=== PATIENT | female | born 1970 | race Caucasian/White ===

== ENCOUNTER 2025-11-17 14:37 | Outpatient (AMB) | payer OTHER, SELFPAY ==
--- OUTSIDE RECORDS SUMMARY | 2025-11-05 09:00 | XMS_ITS ---
Author Organization [facility] Address [address] [place] [id number] Care Team Providers Care Corrections Specialist Name Role Phone ANGELLA ROBERTS Primary Care Provider REASON FOR VISIT For water pill prescription Encounters Encounter Location Date Provider Diagnosis [address] [id number] 11/05/2025 ANGELLA ROBERTS Plan Of Treatment Next Appt Details Provider Name:Marco Sharif, Chapin 01/02/2026 11:30:00 AM, [address] [place] [address], [place], [id number], Progress Notes * Allyson DOUGLAS LDOB: [birth year] (55 yo F)Acc No.[id number]:11/05/2025 Progress Notes Patient: Allyson LAMBERT Provider: Ross ROBERTS MD :1970 A ge:55 Y S ex:Female Date:11/05/2025 Address:[address] [place], [place] [id number] Subjective: * Chief Complaints: * 1 . For water pill prescription. * Medical History: Objective: * Vitals: Assessment: Plan: * Treatment: * Procedure Codes: N OSHO NO SHOW FEE * Images: * Electronic signature of DONTE ROBERTS MD on 11/17/2025 at 04:58 PM EST Sign off status: Pending * Provider: Ross ROBERTS MD Date: 01/06/2025 Generated for Printi ng/Facatg/eTransmitting on: 04:58 PM EST
--- NOTE | 2025-11-17 14:42 | A.OFFPC_ITS ---
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: No Accompanied by: Friend Allergies diphenhydramine (From Benadryl) Allergy (Verified 12/22/25 11:01) Unknown pseudoephedrine (From Sudafed) Allergy (Verified 12/22/25 11:01) heart pounding Medication List - Last Reconciled 12/23/25 by MARIAH Thomas baclofen 20 mg PO QID clonidine HCl 0.2 mg PO QID PRN gabapentin 800 mg PO TID hydrochlorothiazide 12.5 mg PO DAILY ibuprofen 800 mg PO Q8H PRN lorazepam (Ativan) 0.5 mg PO BEDTIME PRN magnesium aspart,citrate,oxide mg PO mirtazapine 45 mg PO BEDTIME oxycodone ER (OxyContin) 10 mg PO ONCE venlafaxine ER 150 mg PO DAILY Tobacco use date assessed: 11/17/25 Dental Screening Dental Screen Date: 11/17/25 Did you have a dental visit in the last 12 months?: Yes Did you have a dental problem in the last 6 months where you did not have access to dental care?: No HPI HPI Comments History of Present Illness Details History of Present Illness The patient is a 55 year old female presenting to establish care and manage chronic pain, anxiety, and depression. She expresses dissatisfaction with her previous provider. The patient reports chronic pain primarily from a hip subluxation, which began after a fall approximately 3-3.5 years ago. An X-ray at that time confirmed a subluxation, and she was told the recovery for a hip replacement would be 6 months, which she declined due to fear. The pain, which started in the left hip, is now described as excruciating and has extended lower after a recent fall two Sund ago. Her current regimen of oxycontin 10 mg twice daily does not provide adequate relief. She is now willing to consider hip replacement surgery due to the unbearable pain. The patient has a history of diagnoses including systemic scleroderma and fibromyalgia. A recent ASA test was negative for systemic Lupus. She has also been diagnosed with fibromyalgia. She suffers from anxiety and depression and is currently taking Zoloft, which she feels is not effective. She had success with Paxil in the past. She is followed by a psychiatrist via telehealth and recently had adverse reactions, including delusional thoughts, to trials of Seroquel and Ambien. She reports experiencing sheer panic and using a life alert device, and recently passed out while on the phone with them. Additional symptoms include lower leg and foot swelling that worsens throughout the day, palpitations described as a pounding feeling, and ringing in one ear. She has a history of a prior echocardiogram for palpitations, but the details are unavailable. Her sleep is poor, averaging only four hours per night, and she has had previous trials of Seroquel and Ambien with poor outcomes. Regarding her social history, she reports a past history of drinking wine all day and into the night to cope with pain, but she quit in July. She was also prescribed clonazepam three times a day for 35 years. Medical History: - Hip subluxation, status post fall appr oximately 3.5 years ago. - Chronic pain syndrome. - Generalized anxiety disorder. - Depression. - Systemic scleroderma, diagnosed previo usly. - Fibromyalgia. - Palpitations. - Tinnitus. - Insomnia. - Lower extremity edema. - History of alcohol abuse, abstinent si july. - History of hospice care due to uncontr olled pain. - History of falls. - Adverse drug reaction to Seroquel and Ambien causing delusions. Surgical History: - No prior surgeries were discussed. Medications: - Oxycodone 10 mg twice daily for pain. - Zoloft (sertraline) once daily in the morning for depression. - Clonidine for blood pressure. - Ambien for sleep, to be discontinued. - Melatonin 10 mg for sleep, to be resum ed. Family History: - Father: history of substance abuse (al cohol). - Sister: has similar aches and pains. Health Maintenance - Lab work ordered to check cholesterol and blood sugar levels. Social History - Substance Use: The patient previously drank wine daily to manage pain but has been abstinent since July. - Functional Status: The patient uses a walker to ambulate. - Housing: Her bathroom is small, and [facility] is in the process of having it enlarged. - Social Support: The patient has a [employer]. Patient was informed and verbally consented to the use of an ambient scribe for clinic note documentation during this visit. FORMERLY [facility], [facility] Medical History (Updated 12/22/25 @ 13:13 by MARIAH Thomas) Anxiety Atypical nevi Bilateral hip pain Compression deformity of vertebra Health care maintenance Joint pain Low back pain MDD (major depressive disorder), recurrent episode Palpitations Family History Mother No problems noted. Father Substance abuse Sister Mental health disorder Substance abuse Paternal Uncle Mental health disorder Brother Substance abuse Social History Housing: House Patient Tobacco Use Status: Current everyday Tobacco user e-Cigarette/Vaping Use: Currently Using service: No Current occupational status: retired and disabled Current occupational exposures/hazards: No Cognitive needs: Yes (wheelchair) Hearing needs: No Vision needs: Yes (rx glasses) Questionnaire PHQ-9 Over the last 2 weeks, how often have you been bothered by any of the following problems? 1. Little interest or pleasure in doing things: not at all 2. Feeling down, depressed, or hopeless: several days (frustrated) 3. Trouble falling or staying asleep, or sleeping too much: nearly every day 4. Feeling tired or having little energy: nearly every day 5. Poor appetite or overeating: nearly every day 6. Feeling bad about yourself - or that you are a failure or have let yourself or your family down: not at all 7. Trouble concentrating on things, such as reading the newspaper or watching television: not at all 8. Moving or speaking so slowly that other people could have noticed. Or the opposite - being so fidgety or restless that you have been moving around a lot more than usual: not at all 9. Thoughts that you would be better off or of hurting yourself in some way: not at all Total score: 10 Depression Screening Interpretation: Positive Depression Screening Follow-up: In treatment Depression Screening Done: Yes Source: Developed by Drs. Federico Styles, Tracey Duval, Darrell Lopez and colleagues, with an educational bhavya from [employer]. Thrive Questionnaire Date Thrive assessed: 12/29/25 I am a: Patient Within the past 12 months, did the food you bought not last and you didn't have the money to get more?: Never true Do you have trouble paying for medicines?: No Do you have trouble getting transportation to medical appointments?: No Do you have trouble paying your heating and electricity bill?: No Do you have trouble taking care of your child, family member or friend?: No Do you have trouble with day-to-day activities such as bathing, preparing meals, shopping, managing finances, etc.?: No Are you currently unemployed and looking for a job?: No Are you interested in more education?: No THRIVE Score: 0 AUDIT C Alcohol Use Questionnaire (AUDIT-C) 1. How often do you have a drink containing alcohol?: Monthly or less 2. How many drinks containing alcohol do you have on a typical day when you are drinking?: 1 or 2 3. How often do you have six or more drinks on one occasion?: Less than monthly Total Score: 2 LITA-7 AMB Questionnaire LITA-7 Date LITA - 7 assessed: 11/17/25 Feeling nervous, anxious, or on edge: 3 = Nearly every day Not being able to stop or control worryin = Nearly every day Worrying too much about different things: 3 = Nearly every day Trouble relaxin = Nearly every day Being so restless that it is hard to sit still: 3 = Nearly every day Becoming easily annoyed or irritable: 3 = Nearly every day Feeling afraid as if something awful might happen: 3 = Nearly every day Total LITA-7 score (0-4 normal; 5-9 mild; 10-14 moderate; 15-21 severe): 21 Source: Developed by Drs. Federico Stylse, Tracey Duval, Darrell Lopez and colleagues, with an educational bhavya from [employer]. Review of Systems Narrative Review of Systems - Psychiatric: Reports anxiety, depression, and panic attacks. - Musculoskeletal: Reports excruciating chronic hip pain that radiates down her leg, as well as generalized body aches. - Cardiovascular: Reports palpitations described as her heart pounding loudly and bilateral lower extremity edema. - Ears, Nose, Throat: Reports ringing in one ear. - Neurological: Reports dizziness upon standing. - Constitutional: Reports poor sleep, averaging only 4 hours per night. Physical exam (Primary Care) Vital Signs: Last Vital Signs Temp 97.8 F 11/17/25 14:45 Pulse 83 11/17/25 14:45 BP 128/72 11/17/25 14:45 Pulse Ox 97 11/17/25 14:45 Oxygen Delivery Method Room Air 11/17/25 14:45 BMI result Body Mass Index 19.5 GENERAL Well developed, Well nourished, in no apparent distress HEENT Head-Normocephalic Eyes- PERRLA, EOMI, Conjuctiva clear, lids WNL Ears- Canals clear, TMs WNL Mouth/Throat-No lesions, no erythema, no exudate Neck- Supple, No lymphadenopathy, thyroid WNL RESPIRATORY Normal I:E, Clear to auscultation CARDIOVASCULAR Regular, rate and rhythm, No murmurs or rubs GASTROINTESTINAL Soft, nontender, normal bowel sounds, no masses MUSCULOSKELETAL Back-Decreased ROM, Tender in Lumbar, Tender with motion, DTR 2+ symmetrical, Gait- in wheel chair 1+ peripheral edema bilaterally, pulses present NEUROLOGICAL Gait in wheel chair PSYCHIATRIC Oriented to person, place and time Mood and affect- depressed and anxious Appearance WNL Speech WNL Thought processes WNL Tobacco/Smoking Status: Tobacco use Status Tobacco use date assessed 11/17/25 11/17/25 15:05 Patient Tobacco Use Status Current everyday Tobacco 11/17/25 15:05 e-Cigarette/Vaping Use Currently Using 11/17/25 15:05 PHQ-9: PHQ-9 Score PHQ-9: Total score 10 11/17/25 16:38 Depression Screening Interpretation: Positive Depression Screening Follow-up: In treatment Thrive Assessment: Date of Thrive Assessment Date Thrive assessed 11/17/25 11/17/25 15:05 Narrative Physical Exam - Lungs: Clear to auscultation bilaterally. - Cardiovascular: Regular rate and rhythm noted on auscultation. Coding Level of Care Code New Pt New Pt Level 4 (75521) Patient Type New Diagnoses Low back pain M54.50 Bilateral hip pain M25.551; M25.552 MDD (major depressive disorder), recurrent episode F33.9 Anxiety F41.9 Palpitations R00.2 Fibromyalgia M79.7 Health care maintenance Z00.00 Edema R60.9 Time Spent (min) 35 Comment Time was spent on Medication reconciliation, H&P, Patient education and orders. Assessment & Plan Assessment & Plan (1) Low back pain: Code(s): M54.50 - Low back pain, unspecified Category: Medical Plan: Will get xray of lower back. Will consider referral to Ortho. Patient to follow up in 4 weeks or sooner if symptoms persist or worsen. (2) Bilateral hip pain: Code(s): M25.551 - Pain in right hip; M25.552 - Pain in left hip Category: Medical Plan: Will get xray. Will consider referral to Ortho. Patient to follow up in 4 weeks or sooner if symptoms persist or worsen. (3) MDD (major depressive disorder), recurrent episode: Code(s): F33.9 - Major depressive disorder, recurrent, unspecified Category: Medical Plan: Will try changing to Duloxetine 30mg daily. Patient to follow up in 4 weeks or sooner if symptoms persist or worsen. (4) Anxiety: Code(s): F41.9 - Anxiety disorder, unspecified Category: Medical Plan: Will try changing to Duloxetine 30mg daily. Patient to follow up in 4 weeks or sooner if symptoms persist or worsen. (5) Palpitations: Code(s): R00.2 - Palpitations Category: Medical Plan: Will request Holter monitor. Patient to follow up in 4 weeks or sooner if symptoms persist or worsen. (6) Fibromyalgia: Code(s): M79.7 - Fibromyalgia Plan: Will try changing to Duloxetine 30mg daily. Patient to follow up in 4 weeks or sooner if symptoms persist or worsen. (7) Health care maintenance: Code(s): Z00.00 - Encounter for general adult medical examination without abnormal findings Category: Medical Plan: Will get labs. (8) Edema: Code(s): R60.9 - Edema, unspecified Plan: Will give HCTZ. Patient to follow up in 4 weeks or sooner if symptoms persist or worsen. Plan Plan Patient was informed and verbally consented to the use of an ambient scribe for clinic note documentation during this visit. 1. Chronic Hip Pain And Subluxation The patient's primary complaint is excruciating chronic pain from a left hip subluxation, which originated from a fall 3.5 years ago and was significantly worsened by another fall two weeks ago. The pain is not controlled with oxycodone 10 mg BID. Updated x-rays of the back and hips will be obtained today to evaluate the current condition. Based on the results, referrals will be made to the appropriate specialist, such as orthopedics or pain management, to address the pain and discuss further interventions, including a potential hip replacement, which the patient is now willing to consider. 2. Fibromyalgia, Anxiety, And Depression The patient reports diagnoses of fibromyalgia, anxiety, and depression. Her current SSRI, sertraline (Zoloft), is not providing adequate symptom relief. The plan is to switch her medication from sertraline to duloxetine (Cymbalta), an SNRI that can also help with chronic pain associated with fibromyalgia. She will be started on a low dose, taken twice daily, and can switch directly from sertraline without a weaning period. A follow-up appointment is scheduled in 4-6 weeks to assess her response to the new medication and make any necessary dosage adjustments. 3. Lower Extremity Edema The patient reports significant swelling in her lower legs and feet, which worsens throughout the day and contributes to her overall pain and discomfort. A prescription for hydrochlorothiazide will be sent to help manage the edema. The patient was instructed to take the medication in the morning. 4. Palpitations The patient complains of palpitations, describing a sensation of her heart pounding loudly, which can wake her from sleep. While her heart rhythm was regular during the office examination, a further workup is warranted. A 2-day Holter monitor will be ordered to continuously monitor her heart rhythm and correlate her symptoms with EKG findings to determine if an arrhythmia is present. 5. Insomnia The patient suffers from poor sleep, averaging only four hours per night, and has had adverse reactions to Ambien and Seroquel. She will discontinue Ambien and was advised to resume taking her 10 mg melatonin supplement for sleep support. It is hoped that improved pain and mood control with duloxetine will also lead to better sleep quality. Discussion Notes I had a detailed discussion with the patient about the plan of care. I explained that we would start by gathering more information through updated x-rays of her back and hips, as well as comprehensive blood work, including inflammatory markers and a general health panel, which she can have done today at the hospital. We discussed switching her antidepressant from sertraline to duloxetine, explaining that duloxetine is often more effective for conditions involving chronic pain, such as fibromyalgia, and that she could make the switch directly without weaning off her current medication. I also addressed her complaint of lower leg swelling by prescribing hydrochlorothiazide, and she confirmed she has taken it before. To investigate her palpitations, I recommended a 2-day Holter monitor to capture her heart's electrical activity over an extended period. I informed her that based on the results of these initial tests, we would decide on the most appropriate specialty referrals???such as orthopedics, pain management, or rheumatology???to best manage her chronic pain. We agreed she should stop taking Ambien and could resume melatonin 10mg for sleep. Finally, I advised her to schedule a follow-up appointment in 4 to 6 weeks to review the results, assess her response to the medication change, and adjust the plan as needed. Patient Instructions - Please go to the hospital today to get your blood work and X-rays done. - We are switching your medication for depression and pain from Zoloft (sertraline) to Cymbalta (duloxetine). - You can stop taking the sertraline and start taking the duloxetine tomorrow morning. - Take the new medication, duloxetine, twice a day (morning and evening). - A prescription for a water pill (hydrochlorothiazide) has been sent to your pharmacy. Take one pill in the morning to help with the swelling in your legs. - Stop taking Ambien for sleep. - You can go back to taking melatonin 10 mg for sleep. - The cardiology department will contact you to schedule an appointment to get a Holter monitor, which you will wear for two days to check your heart rhythm. - Please schedule a follow-up appointment with me in 4 to 6 weeks to see how you are doing on the new medication. Orders: Orders Comprehensive Met. Panel 11/17/25 F33.9 - Major depressive disorder, recurrent, unspecified, F41.9 - Anxiety disorder, unspecified, Z00.00 - Encounter for general adult medical examination without abnormal findings Vitamin D 25-OH Total 11/17/25 Z00.00 - Encounter for general adult medical examination without abnormal findings TSH reflex Free T4 11/17/25 F33.9 - Major depressive disorder, recurrent, unspecified, F41.9 - Anxiety disorder, unspecified, Z00.00 - Encounter for general adult medical examination without abnormal findings XR hips RODDY min 3V 12/29/25 M25.551 - Pain in right hip, M25.552 - Pain in left hip ECG holter monitor 48 hour 11/17/25 R00.2 - Palpitations Complete Blood Count no Diff 11/17/25 Z00.00 - Encounter for general adult medical examination without abnormal findings, F33.9 - Major depressive disorder, recurrent, unspecified, F41.9 - Anxiety disorder, unspecified Lipid Panel 11/17/25 Z00.00 - Encounter for general adult medical examination without abnormal findings, Z13.220 - Encounter for screening for lipoid disorders XR lumbar spine 2-3V 11/17/25 M54.50 - Low back pain, unspecified CRP High Sensitivity 11/17/25 M25.50 - Pain in unspecified joint Erythrocyte Sedimentation Rate 11/17/25 M25.50 - Pain in unspecified joint Medications: New 2 hydrochlorothiazide 12.5 mg PO DAILY 90 tabs 0RF for swelling duloxetine 30 mg PO BID 180 caps 0RF for fibromyalgia
[2025-11-17 14:45] VITALS: BP 128/72; PULSE 83; TEMP 36.6; O2SAT 97; BMI 19.5
--- OUTSIDE RECORDS SUMMARY | 2025-11-17 16:59 | XMS_ITS | Patient Health Record ---
Author Organization [facility] liance Address [address] [place] [address] Care Team Providers Care Stretch Machine Operator Name Role Phone [place] Primary Care Provider UnavailRupert Dias Unavailable [phone] Tolu Sandoval Unavailable [phone] Jyoti Ferro Unavailable [phone] Clinical, Operations Unavailable Unavailable Chiara Forman Unavailable [phone] Mounika Krishnamurthy Unavailable [phone] Analia Fuller Unavailable [phone] Eran Ceballos Unavailable [phone] Allergies No Known Allergies Reason For Referral Reason REPAIR REQUEST Mem ramírez reported that her lift recliner is not working. Diagnosis 1 History of falling ( Z91.81) Referring Provider First Name Operations Referring Provider Last Name Clinical Referring Provider Speciality Unknown Referred Provider [employer] General Notes If unable to process this request or you require more information, please contact Nick at [email or web address] or by [phone] Referral Priority Routine Reason ICO TOOL MACHINE SET UP OPERATOR Referral req uest for adjustment for increase Diagnosis 1 Other malaise (R53.8 1) Referring Provider First Name Operations Referring Provider Last Name Clinical Referring Provider Speciality Unknown [facility] Referred Provider Specialty Personal Car e Management Clinical Notes Is member ICO (OneRiddhi re)? ICO, Resident Services Manager email address: [email or web address], Is this request for an Initial, Increase, or Decrease? Increase, Dates increase and decrease needed for ? Member called stating she has been put on morphine 4x a day but is unable to give herself a 2:30 am dose by herself., If this is an urgent need for increase in hours please provide rationale: , Who is requesting TOOL MACHINE SET UP OPERATOR services or changes of TOOL MACHINE SET UP OPERATOR services and their relationship to, the member? The member, Diagnosis with ICD10 code that supports need for TOOL MACHINE SET UP OPERATOR: R53.81 Other Malaise, Which of the at least 2 ADL hands on needs does this member need assistance with: mobility and toileting, Additional hands-on needs: , What are the member's informal supports? No, Will member likely need a surrogate to manage a TOOL MACHINE SET UP OPERATOR? No, If yes, provide surrogate contact if available:, Primary contact for Member: [phone], Members preferred language: Martiniquais, Does member have existing LTSS? Please list: , Will TOOL MACHINE SET UP OPERATOR be replacing the LTSS? Please list: No, Provide name and contact info for [facility]: Malgorzata Bradleyiago ([phone] ext. [phone]), Please identify PCM agency and FI member will be using:, PCM: ([facility]) [facility] [employer] FI: Matias Mejía Frances 01/16/2025 04:04:38 PM > Referral Priority Routine Reason ICO TOOL MACHINE SET UP OPERATOR Referral req uest for adjustment for increase Diagnosis 1 Other malaise (R53.8 1) Referring Provider First Name Operations Referring Provider Last Name Clinical Referring Provider Speciality Unknown Referred Provider [facility] [employer] Referred Provider Specialty Personal Car e Management Clinical Notes Is member ICO (OneCa re)? ICO, Resident Services Manager email address: [email or web address], Is this request for an Initial, Increase, or Decrease? Increase, Dates increase and decrease needed for? KARLOS, If this is an urgent need for increase in hours please provide rationale: Member's declining health, [facility], Who is requesting TOOL MACHINE SET UP OPERATOR services or changes of TOOL MACHINE SET UP OPERATOR services and their relationship to, the member? Member, Diagnosis with ICD10 code that supports need for TOOL MACHINE SET UP OPERATOR: R53.81, Other malaise, Which of the at least 2 ADL hands on needs does this member need assistance with: Bathing and Toileting, Additional hands-on needs: Mobility, dressing, eating, What are the member's informal supports? [place] , Will member likely need a surrogate to manage a TOOL MACHINE SET UP OPERATOR? No, If yes, provide surrogate contact if available: , Primary contact for Member: Self, Members preferred language: Martiniquais, Does member have existing LTSS? Please list: TOOL MACHINE SET UP OPERATOR, Will TOOL MACHINE SET UP OPERATOR be replacing the LTSS? Please list: No, Provide name and contact info for [facility]/LT[facility]: Shivani Castle ([phone]), Please identify PCM agency and FI member will be using: PCM: [facility], FI: Matias Mejía Frances 01/29/2025 08:35:20 AM > Referral Priority Routine Medications Medication SIG (Take, Route, Frequency, Duration) Notes Start Date End Date Status Morphine Sulfate ER 15 MG 1 tablet Orally three times a day As needed for pain Not-Taking Loperamide HCl 2 MG 1 capsule as needed Orally Four times a day OTC-PRN Active Diclofenac Sodium 75 MG 1 tablet as need ed Orally Twice a day Not-Taking Cholecalciferol 125 MCG (5000 UT) 1 capsule Orally Once a day Active Acamprosate Calcium 333 MG 1 tablet Orally 3 times a day Active Mirtazapine 7.5 MG 1 tablet at bedtime Orally Once a day Active Saccharomyces boulardii 250 MG 1 capsule Orally twice a day Not-Taking cloNIDine HCl 0.2 MG 1 tablet Orally 3 times a day Active Albuterol Sulfate HFA 108 (90 Base) MCG/ACT 1 puff as needed Inhalation every 4 hrs As needed Active Baclofen 20 MG 1 tablet with food or milk as needed Orally Three times a day Active Melatonin 10 MG 2 tablets Orally daily at bedtime Active Ketoconazole 2 % 1 application Externally Once a day As needed Active Gabapentin 800 MG 1 tablet Orally three times a day Active Hydrocortisone 2.5 % 1 application Externally Twice a day As needed Active Magnesium 250 MG 500 mg Orally Once a day Active Pepto Bismol 262 MG 1 capsule as needed Orally as needed As needed OTC Active oxyCODONE HCl ER 10 MG 1 tablet Orally every 12 hrs Active clonazePAM 1 MG 1 tablet Orally twice a day Active Sertraline HCl 50 MG 1 tablet Orally Once a day Daily dose 150mg, take with 100mg Not-Taking Sertraline HCl 200 MG 1 tablet Orally Once a day Active Social History Alcohol Screen Question Answer Notes Did you have a drink contain ing alcohol in the past year? Yes How often did you have a dri nk containing alcohol in the past year? Monthly or less (1 point) How many drinks did you have on a typical day when you were drinking in the past year? 1 or 2 drinks (0 point) How often did you have 6 or more drinks on one occasion in the past year? Never (0 point) Points 1 Interpretation Negative Section Notes: Reports she smokes 1ppd sinc e she was a teenager >40 years. Used to drink alcohol, now very rarely. Denies any drug use. Member smokes 0.5 packs a da y for about 40 years. She drinks 3-4 drinks a week Problems Problem Type SNOMED Code ICD Code Onset Dates Problem Status W/U Status Risk Notes Problem Incontinence (16415419) Incontinence (R32) Inactive confirmed Problem Essential hypertension (71346511) Essential hypertension (I10) Active confirmed Problem Posttraumatic stress disorder (89451965) PTSD (post-traumatic stress disorder) (F43.10) Inactive confirmed Problem History of fall (384110897) History of falling (Z91.81) Inactive confirmed Problem Neuropathy (476447353) Neuropathy (G62.9) Inactive confirmed Problem Adult health examination (738508911) Encounter for general adult medical examination without abnormal findings (Z00.00) Inactive confirmed Problem Seen by palliative care physician (878310572) Encounter for palliative care (Z51.5) Active confirmed Problem Anorexia (91393381) Anorexia (R63.0) Inactive confirmed Problem Irritable bowel syndrome with diarrhea (875043719) Irritable bowel syndrome with diarrhea (K58.0) Active confirmed Problem Vitamin D deficiency (56028983) Vitamin D deficiency (E55.9) Active confirmed Problem Chronic pain syndrome (553798563) Chronic pain syndrome (G89.4) Inactive confirmed Problem Unsteady gait (02251788) Unsteady gait (R26.81) Inactive confirmed Problem Muscle weakness (93893194) Muscle weakness (generalized) (M62.81) Active confirmed Problem Generalized anxiety disorder (04313962) LITA (generalized anxiety disorder) (F41.1) Active confirmed Problem Benign hypertension (13635389) Benign hypertension (I10) Inactive confirmed Problem Insomnia disorder related to another mental disorder (87990596) Insomnia due to other mental disorder (F51.05) Active confirmed Problem Hearing loss (45832716) Unspecified hearing loss (H91.90) Active confirmed Problem Moderate recurrent major depression (98759603) MDD (major depressive disorder), recurrent episode, moderate (F33.1) Inactive confirmed Problem Functional urinary incontinence (230744908) Functional incontinence (R39.81) Active confirmed Problem Fibromyalgia (628373207) Fibromyalgia (M79.7) Active confirmed Problem History of skin disorder (270479184) History of pressure ulcer (Z87.2) Active confirmed Problem Tobacco user (378303268) Cigarette nicotine dependence without complication (F17.210) Active confirmed Problem Adult failure to thrive syndrome (269815278) FTT (failure to thrive) in adult (R62.7) Active confirmed Problem Malnutrition of mild degree (Aguilar: 75% to less than 90% of standard weight) (15042558) Mild protein-calorie malnutrition (E44.1) Inactive confirmed Problem 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 Problem Acquired unequal limb length (935082622876702 ) Unequal limb length (acquired), unspecified site (M21.70) Active confirmed Problem Urinary incontinence (458600138) Other specified urinary incontinence (N39.498) Inactive confirmed Problem Chronic pain (99256787) Other chronic pain (G89.29) Active confirmed Problem Posttraumatic stress disorder (35621781) Post-traumatic stress disorder, chronic (F43.12) Active confirmed Recommended by CDI Problem Inflammatory and toxic neuropathy (185353421) Peripheral polyneuropathy (G62.9) Active confirmed Problem Mild recurrent major depression (26544325) MDD (major depressive disorder), recurrent episode, mild (F33.0) Active confirmed Problem Anxiety state (687112114) Anxiety disorder, unspecified type (F41.9) Inactive confirmed Problem Moderate recurrent major depression (46218214) Moderate episode of recurrent major depressive disorder (F33.1) Inactive confirmed Problem High risk drug monitoring status (964000560) long-term prescription opiate use (Z79.891) Active confirmed Problem Urinary incontinence (715402831) Urinary incontinence, unspecified type (R32) Inactive confirmed Problem BMI less than 20 (317266347) Body mass index (BMI) less than 16.5 (Z68.1) Inactive confirmed Problem Insomnia (765829381) Insomnia, unspecified type (G47.00) Inactive confirmed Problem Redness of skin (L53.9) Active confirmed Problem Localized, secondary osteoarthritis of the shoulder region (719424969) 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) Inactive confirmed Problem BMI less than 20 (872078743) Body mass index [BMI] 19.9 or less, adult (Z68.1) Active confirmed Problem Current drinker of alcohol (finding) (401801) Alcohol use, unspecified, uncomplicated (F10.90) Active confirmed Vital Signs Heart Rate 88 /min 12/13/2024 Respiratory Rate 18 /min 12/13/2024 Blood pressure diastolic 85 mm Hg 12/13/2024 Oximetry 91 % 12/13/2024 Height-cm 160.02 cm 12/13/2024 Weight-kg 46.27 kg 12/13/2024 Height 63 in 12/13/2024 Blood pressure systolic 124 mm Hg 12/13/2024 Weight 102 lbs 12/13/2024 BMI 18.07 kg/m2 12/13/2024 Encounters Encounter Location Date Provider Diagnosis [address] [address] 12/13/2024 Mounika Krishnamurthy Encounter for palliative care Z51.5 and Progressive systemic sclerosis M34.[address] [address] 12/18/2024 Mounika Krishnamurthy Encounter for palliative care Z51.5 and Progressive systemic sclerosis M34.[address] [address] 12/26/2024 Mounika Krishnamurthy Encounter for palliative care Z51.5 and Progressive systemic sclerosis M34.[address] [address] 12/26/2024 Analia Fuller Encounter for palliative care Z51.[address] [address] 12/30/2024 Mounika Krishnamurthy [address] [address] 01/01/2025 Mounika Krishnamurthy [address] [address] 01/28/2025 Analia Beauchemin Encounter for palliative care Z51.5 [facility] [address] [facility] [address] [place] [address] 04/30/2025 Jyoti Ferro Other chronic pain G89.29 ; Encounter for palliative care Z51.5 ; Alcohol use, unspecified, uncomplicated F10.90 and Body mass index [BMI] 19.9 or less, adult Z68.1 [facility] [address] [place] [address] 05/30/2025 Chiara Forman Fibromyalgia M79.7 ; Unequal limb length (acquired), unspecified site M21.70 ; Peripheral polyneuropathy G62.9 and Other reduced mobility Z74.09 [facility] [address] [place] [address] 09/25/2025 Operations Clinical History of pressure ulcer Z87.2 ; long-term prescription opiate use Z79.891 ; FTT (failure to thrive) in adult R62.7 ; Functional incontinence R39.81 ; Fibromyalgia M79.7 ; Muscle weakness (generalized) M62.81 ; Unequal limb length (acquired), unspecified site M21.70 ; Redness of skin L53.9 ; Irritable bowel syndrome with diarrhea K58.0 ; Essential hypertension I10 ; Unspecified hearing loss H91.90 ; Other chronic pain G89.29 ; Peripheral polyneuropathy G62.9 ; Insomnia due to other mental disorder F51.05 ; LITA (generalized anxiety disorder) F41.1 ; MDD (major depressive disorder), recurrent episode, mild F33.0 ; Cigarette nicotine dependence without complication F17.210 ; Amnestic disorder due to known physiological condition F04 ; Vitamin D deficiency E55.9 ; Post-traumatic stress disorder, chronic F43.12 ; Encounter for palliative care Z51.5 ; Body mass index [BMI] 19.9 or less, adult Z68.1 and Alcohol use, unspecified, uncomplicated F10.[address] [place] [address] 04/29/2025 Eran Ceballos [facility] [address] [facility] [address] [place] [address] 04/10/2025 Operations [facility] [address] [place] [address] 04/11/2025 Operations [facility] [address] [place] [address] 04/11/2025 Operations [facility] [address] [place] [address] 04/15/[address] [facility] [address] [facility] [address] [place] [address] 04/24/2025 Operations [facility] [address] [place] [address] 04/28/2025 [facility] [place]Note 2[place] [address] [facility] [address] [place] [address] 05/01/2025 [facility] [address] [facility] [address] [place] [address] 05/02/2025 [facility] (Closed) [address] [place] [address] 07/29/2025 [facility] [address] [place] [address] 08/25/2025 Tolu Sandoval Assessments Encounter Date Diagnosis (ICD Code) Assessment Notes Treatment Notes Treatment Clinical Notes Section Notes 12/13/2024 Encounter for palliative care (ICD-10 - Z51.5) 54yo female admitted to the palliative care program on 10/30/24 with a dx of progressive Systemic sclerosis, chronic pain -Consent to PC -Advanced Directives Currently: DNR/DNI , Do not transfer -HCP on file in [facility]- will update once witness available -current JAKOB emailed to HIM to be added to patients [facility] documents -Collaboration with PCP- re: pain medication recommendations vs. hospice Education provided on: palliative care program, disease process, various pain medication options, energy conservation Follow up needs: hospice informational- [facility] -Palliative Care contact information reviewed and provided. -InstED services/contact information reviewed and provided. -Resident Services Manager updated on palliative visit and plan 12/18/2024 Encounter for palliative care (ICD-10 - Z51.5) 54yo female admitted to the palliative care program on 10/30/24 with a dx of progressive Systemic sclerosis, chronic pain -Advanced Directives Currently: DNR/DNI , Do not transfer -Collaboration with PCP- re: pain medication recommendations vs. hospice Education provided on: palliative care program, disease process, various pain medication options, energy conservation Follow up needs: hospice informational- patient chose [facility] hosp[facility] -Palliative Care contact information reviewed and provided. -InstED services/contact information reviewed and provided. -Resident Services Manager updated on palliative visit and plan 12/26/2024 Encounter for palliative care (ICD-10 - Z51.5) 54yo female admitted to the palliative care program on 10/30/24 with a dx of progressive Systemic sclerosis, chronic pain -Advanced Directives Currently: DNR/DNI , Do not transfer -Collaboration with PCP- re: pain medication recommendations vs. hospice Education provided on: palliative care program vs. hospice program, disease process, various pain medication options, energy conservation Follow up needs: [facility] hosp[facility] -Palliative Care contact information reviewed and provided. -InstED services/contact information reviewed and provided. -Resident Services Manager updated on palliative visit and plan 12/26/2024 Encounter for palliative care (ICD-10 - Z51.5) 54yo female admitted to the palliative care program on 10/30/24 with a dx of progressive Systemic sclerosis, chronic pain *Todays visit: Joint visit made with Mounika Krishnamurthy palliative APC for HCP completion and review for Hospice appropriateness, Hospice informational * See HPI *Note faxed to [facility] for comparative review, under consideration for admission to Hospice 01/28/2025 Encounter for palliative care (ICD-10 - Z51.5) 54yo female admitted to the palliative care program on 10/30/24 with a dx of progressive Systemic sclerosis, chronic pain *Todays visit:Pt telehealth and Hospice case conference Pt alert and able to engage in visit. States she is satisfied with [facility] care and in agreement with palliative discharge 04/30/2025 Other chronic pain (ICD-10 - G89.29) 05/30/2025 Fibromyalgia (ICD-10 - M79.7) SUMMARY: Member presents with chronic pain in multiple sites and impaired mobility. She reports she lived at a snf x a couple of years and moved into her current home approx 2 years ago. She is non-ambulato ry and relies on her mwc and pwc for all mobility. She has 13 TOOL MACHINE SET UP OPERATOR hours/day, with assist to get OOB in the morning and back to bed at night. digital asset specialist assist member transfer between her bed and her manual wc and power wc with max assist for SPTs. Member has requested a power lift recliner, although she does own 2 currently. One of them is quite small and would not be an appropriate for her to transfer on/off of. The other one which she recently purchased online works fine, but member states she does not use it as it is uncomfortabl e. PT observed TOOL MACHINE SET UP OPERATOR transfer member btwn her mwc and pwc with safe technique. PT did recommend that they use the gait belt. Member states she stays up in her mwc or pwc all day, and does not routinely lay down on the bed during the day. PT does not feel she meets the ZDB176 guidelines for a power lift recliner, as it does not appear that the lift feature would make member's transfers any easier, or safer. In fact, as this PT was sitting in her new PLR, as it was elevating me into a standing position, it felt like I was sliding forward on the seat, possibly due to the faux leather material. As member cannot WB on her LLE and minimally (TTWB) on her RLE, the elevation feature could put her at higher risk of falling. She would still require max assist from TOOL MACHINE SET UP OPERATOR for all SPTs to her w/c. She does still have the option of using her new recliner as a static seat surface. Her TOOL MACHINE SET UP OPERATOR is able to safely transfer her from standard height surfaces, btwn her mwc and pwc. PT will recommend denial as it does not appear a power lift recliner will aide in her transfers, safety or increase her independence . Member was educ in the appeal process if a PLR is denied. 05/30/2025 Unequal limb length (acquired), unspecified site (ICD-10 - M21.70) SUMMARY: presents with chronic pain in multiple sites and impaired mobility. She reports she lived at a snf x a couple of years and moved into her current home approx 2 years ago. She is non-ambulato ry and relies on her mwc and pwc for all mobility. She has 13 TOOL MACHINE SET UP OPERATOR hours/day, with assist to get OOB in the morning and back to bed at night. digital asset specialist assist member transfer between her bed and her manual wc and power wc with max assist for SPTs. Member has requested a power lift recliner, although she does own 2 currently. One of them is quite small and would not be an appropriate for her to transfer on/off of. The other one which she recently purchased online works fine, but member states she does not use it as it is uncomfortabl e. PT observed TOOL MACHINE SET UP OPERATOR transfer member btwn her mwc and pwc with safe technique. PT did recommend that they use the gait belt. Member states she stays up in her mwc or pwc all day, and does not routinely lay down on the bed during the day. PT does not feel she meets the ZMV640 guidelines for a power lift recliner, as it does not appear that the lift feature would make member's transfers any easier, or safer. In fact, as this PT was sitting in her new PLR, as it was elevating me into a standing position, it felt like I was sliding forward on the seat, possibly due to the faux leather material. As cannot WB on her LLE and minimally (TTWB) on her RLE, the elevation feature could put her at higher risk of falling. She would still require max assist from TOOL MACHINE SET UP OPERATOR for all SPTs to her w/c. She does still have the option of using her new recliner as a static seat surface. Her TOOL MACHINE SET UP OPERATOR is able to safely transfer her from standard height surfaces, btwn her mwc and pwc. PT will recommend denial as it does not appear a power lift recliner will aide in her transfers, safety or increase her independence . was educ in the appeal process if a PLR is denied. 09/25/2025 History of pressure ulcer (ICD-10 - Z87.2) 05/30/2025 Peripheral polyneuropathy (ICD-10 - G62.9) SUMMARY: presents with chronic pain in multiple sites and impaired mobility. She reports she lived at a snf x a couple of years and moved into her current home approx 2 years ago. She is non-ambulato ry and relies on her mwc and pwc for all mobility. She has 13 TOOL MACHINE SET UP OPERATOR hours/day, with assist to get OOB in the morning and back to bed at night. digital asset specialist assist member transfer between her bed and her manual wc and power wc with max assist for SPTs. Member has requested a power lift recliner, although she does own 2 currently. One of them is quite small and would not be an appropriate for her to transfer on/off of. The other one which she recently purchased online works fine, but member states she does not use it as it is uncomfortabl e. PT observed TOOL MACHINE SET UP OPERATOR transfer member btwn her mwc and pwc with safe technique. PT did recommend that they use the gait belt. Member states she stays up in her mwc or pwc all day, and does not routinely lay down on the bed during the day. PT does not feel she meets the KWG390 guidelines for a power lift recliner, as it does not appear that the lift feature would make member's transfers any easier, or safer. In fact, as this PT was sitting in her new PLR, as it was elevating me into a standing position, it felt like I was sliding forward on the seat, possibly due to the faux leather material. As cannot WB on her LLE and minimally (TTWB) on her RLE, the elevation feature could put her at higher risk of falling. She would still require max assist from TOOL MACHINE SET UP OPERATOR for all SPTs to her w/c. She does still have the option of using her new recliner as a static seat surface. Her TOOL MACHINE SET UP OPERATOR is able to safely transfer her from standard height surfaces, btwn her mwc and pwc. PT will recommend denial as it does not appear a power lift recliner will aide in her transfers, safety or increase her independence . Member was educ in the appeal process if a PLR is denied. 04/30/2025 Encounter for palliative care (ICD-10 - Z51.5) g89.29 f10.90 z68.1 54 yo female with long history of chronic pain, alcohol use, and a self reported history of scleroderm. She has a history of dysfunctional interaction with the health care system. It appears according to chart review and according to patient report she is often referred for testing and to specialists etc and follow up does not occur. Her current goal is for improvement in her chronic pain. She is currently being titrated down on opiats by her PCP after being discharged from hospice. She was recently referred to physical therapy by her PCP. She was encouraged to maintain this appointment, to engage with PT and to participate fully and consistently with their reccomendations. We discussed the role of immobility in her pain experience, and she agrees to do. We discussed the lack of specialty care with rheumatology and the ambiguity I see surrounding the diagnosis scleroderma/syst emic sclerosis and whether or not the possibility of this diagnosis impacts her risk of mortality. I expressed my worries with her that without specialty level care it will continue to be difficult getting the type of care or relief that she desires. I encouraged her to assure she has follow up with Dr. Hale after her most recent appointment. She agrees to do so as she wishes to see the lab results her ordered. I explained that our palliative care service does not prescribe, and anything that we reccomended or another specialist recommended her primary provider would need to be in agreement with. She seemed to understand this. I also discussed that managing chronic pain unrelated to a terminal illness is not our area of expertise. We explored the differences of acute pain and/or pain related to a terminal illness, vs the nature of chronic pain and the need to treat these two things very differently for the best and safest outcomes. I suggested that her engaging with a chronic pain specialist and/or pain clinic would be my reccomendation at this time. I explained that I was willing to explore options in her area and call her with some contacts in a few days which she agreed. Although her weight is low, it is largely stable and likely multifactorial. She would likely benefit from nutritional consult and/or referral to principal technical specialist to determine how much her alcohol use is imacting her nutritional status. Her alcohol use and readiness for sobriety should be assessed by primary team for best next steps. 12/26/2024 Progressive systemic sclerosis (ICD-10 - M34.0) -Monitor for increased pain, numbness -F/U with PCP as scheduled -Continue current pain medications as prescribed 12/18/2024 Progressive systemic sclerosis (ICD-10 - M34.0) -Monitor for increased pain, numbness -F/U with PCP as scheduled -Continue current pain medications as prescribed 12/13/2024 Progressive systemic sclerosis (ICD-10 - M34.0) -Monitor for increased pain, numbness -F/U with PCP as scheduled -Continue current pain medications as prescribed 09/25/2025 secured entrance monitor prescription opiate use (ICD-10 - Z79.891) 05/30/2025 Other reduced mobility (ICD-10 - Z74.09) SUMMARY: Member presents with chronic pain in multiple sites and impaired mobility. She reports she lived at a snf x a couple of years and moved into her current home approx 2 years ago. She is non-ambulato ry and relies on her mwc and pwc for all mobility. She has 13 TOOL MACHINE SET UP OPERATOR hours/day, with assist to get OOB in the morning and back to bed at night. digital asset specialist assist member transfer between her bed and her manual wc and power wc with max assist for SPTs. Member has requested a power lift recliner, although she does own 2 currently. One of them is quite small and would not be an appropriate for her to transfer on/off of. The other one which she recently purchased online works fine, but member states she does not use it as it is uncomfortabl e. PT observed TOOL MACHINE SET UP OPERATOR transfer member btwn her mwc and pwc with safe technique. PT did recommend that they use the gait belt. Member states she stays up in her mwc or pwc all day, and does not routinely lay down on the bed during the day. PT does not feel she meets the [id number] guidelines for a power lift recliner, as it does not appear that the lift feature would make member's transfers any easier, or safer. In fact, as this PT was sitting in her new PLR, as it was elevating me into a standing position, it felt like I was sliding forward on the seat, possibly due to the faux leather material. As member cannot WB on her LLE and minimally (TTWB) on her RLE, the elevation feature could put her at higher risk of falling. She would still require max assist from TOOL MACHINE SET UP OPERATOR for all SPTs to her w/c. She does still have the option of using her new recliner as a static seat surface. Her TOOL MACHINE SET UP OPERATOR is able to safely transfer her from standard height surfaces, btwn her mwc and pwc. PT will recommend denial as it does not appear a power lift recliner will aide in her transfers, safety or increase her independence . Member was educ in the appeal process if a PLR is denied. 04/30/2025 Alcohol use, unspecified, uncomplicated (ICD-10 - F10.90) 09/25/2025 FTT (failure to thrive) in adult (ICD-10 - R62.7) 09/25/2025 Functional incontinence (ICD-10 - R39.81) 04/30/2025 Body mass index [BMI] 19.9 or less, adult (ICD-10 - Z68.1) 09/25/2025 Fibromyalgia (ICD-10 - M79.7) 09/25/2025 Muscle weakness (generalized) (ICD-10 - M62.81) 09/25/2025 Unequal limb length (acquired), unspecified site (ICD-10 - M21.70) 09/25/2025 Redness of skin (ICD-10 - L53.9) 09/25/2025 Irritable bowel syndrome with diarrhea (ICD-10 - K58.0) 09/25/2025 Essential hypertension (ICD-10 - I10) 09/25/2025 Unspecified hearing loss (ICD-10 - H91.90) 09/25/2025 Other chronic pain (ICD-10 - G89.29) 09/25/2025 Peripheral polyneuropathy (ICD-10 - G62.9) 09/25/2025 Insomnia due to other mental disorder (ICD-10 - F51.05) 09/25/2025 LITA (generalized anxiety disorder) (ICD-10 - F41.1) 09/25/2025 MDD (major depressive disorder), recurrent episode, mild (ICD-10 - F33.0) 09/25/2025 Cigarette nicotine dependence without complication (ICD-10 - F17.210) 09/25/2025 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) 09/25/2025 Vitamin D deficiency (ICD-10 - E55.9) 09/25/2025 Post-traumatic stress disorder, chronic (ICD-10 - F43.12) Recommended by CDI 09/25/2025 Encounter for palliative care (ICD-10 - Z51.5) 09/25/2025 Body mass index [BMI] 19.9 or less, adult (ICD-10 - Z68.1) 09/25/2025 Alcohol use, unspecified, uncomplicated (ICD-10 - F10.90) Plan Of Treatment No Information Insurance Providers Payer Name Payer Address Payer Phone Subscriber Number Group Number Insured Name Patient Relationship to Insured Coverage Start Date Coverage End Date [address] [phone] [id number] KORI DOUGLAS Self - patient is the insured 6 5 Medical (General) History Medical History History ICD Code Scleroderma HTN Major depression Anxiety Nicotine dependence IBS Insomnia Osteoarthritis Surgical History Surgery Date(Month/Year) Right Shoulder Surgery Anterior hemorroidectomy and Anal Papill a Excision 11/11/14 partial thyroidectomy
--- OUTSIDE RECORDS SUMMARY | 2025-11-17 16:59 | XMS_ITS | Data Portability ---
Author Organization [email or web address] [facility], [facility] Address [address] [place] [address] Care Team Providers Care Net Applications Developer Name Role Phone HIM [facility] OTHER DELORES ARIZMENDI Primary Care Provider Assessment No assessment recorded. Plan of Treatment Reminders Order Date Submit Date Provider Last Modified By Organization Details Last Modified Time Details Appointments None record ed. Lab None record ed. Referral None record ed. Procedures None record ed. Surgeries None record ed. Imaging None record ed. Medication Orders None record ed. Patient TargetsNo targets recorded. Patient Instructions Encounter Date Encounter Id Patient Instructions Last Modified By Organization Details Last Modified Time 04/15/2025 [id number] mackey catheter change* akrones Not available 04/15/2025 15:59:01 Reason for Referral None Reported. Medical Equipment None Reported. Allergies No known drug allergies Medications Name Sig Start Date Stop Date Status Note LastModified by Organization Details LastModified Time sertraline 100 mg tablet TAKE 1 TABLET BY MOUTH ONCE DAILY active Not Available Not Available No t Available gabapentin 800 mg tablet TAKE 1 TABLET BY MOUTH EVERY 8 HOURS active Not Available Not Available No t Available prednisone 50 mg tablet TAKE 1 TABLET BY MOUTH DAILY active Not Available Not Available No t Available clonazepam 2 mg tablet TAKE 1 TABLET BY MOUTH 4 TIMES DAILY NEEDED active Not Available Not Available No t Available magnesium 500 mg (as magnesium oxide) tablet TAKE 1 TABLET BY MOUTH DAILY WITH FOOD active Not Available Not Available No t Available diclofenac sodium 75 mg tablet,delaye d release TAKE 1 TABLET BY MOUTH TWICE DAILY active Not Available Not Available No t Available hydrocortison e 2.5 % topical cream APPLY TOPICALLY TO THE AFFECTED AREA TWICE DAILY active Not Available Not Available No t Available albuterol sulfate HFA 90 mcg/actuation aerosol inhaler INHALE 2 PUFFS BY MOUTH EVERY 4 HOURS active Not Available Not Available No t Available ketoconazole 2 % topical cream APPLY TOPICALLY TO THE AFFECTED AREA TWICE DAILY FOR 14 DAYS active Not Available Not Available No t Available morphine 15 mg immediate release tablet TAKE 1 TABLET BY MOUTH EVERY 8 HOURS FOR CHRONIC PAIN active Not Available Not Available No t Available Vitamin D3 125 mcg (5,000 unit) tablet TAKE 1 TABLET BY MOUTH EVERY DAY active Not Available Not Available No t Available Vitals Date Recorded Respiratory rate Oxygen saturation Heart rate Body weight Body temperature Body height Systolic And Diastolic Provider Name and Address Organization Details Last Updated DateTime 5 18 /min 97 % 87 /min 59847.0 8 g 98.1 [degF] 154.94 cm 127/71 mm[Hg] Not Available [facility] - production 5 15:50:53 Social History None recorded. Functional Status None recorded. Mental Status None recorded. Family History Nothing Reported. Medical History No medical history recorded. Gynecological HistoryNo gynecological history recorded. Obstetrics History GPAL:G 0 P 0 0 0 0 Past Encounters Encounter ID Performer Location Encounter Start Date Encounter Closed Date Diagnosis/Indication Diagnosis SNOMED-CT Code Diagnosis ICD10 Code Diagnosis IMO Codes Diagnosis Note [id number] Alessandra Matute MD [facility] - [facility] [address] [place] [phone] 04/15/2025 15:50:51 04/15/2025 20:07:27 Urinary system finding [id number] R39.9 [id number] As noted, we were called to see this patient regarding concerns of urinary symptoms. Evaluation in the field was performed by my dietary cook colleague, as noted above, I provided real-time direction and supervisio n for this visit. The evaluation revealed 54 yo woman with MS, chronic mackey who reports that her mackey was painful as soon as it was placed and as long as it was placed, with leakage. The catheter came out yesterday with immediate improvemen t in the pain. She has had continued urinary leakage since then.She says that she had a mackey placed 3 months ago for urine leakage and retention. She has never seen a urologist and has not had the mackey changed for 3 months.She also endorses mild abdominal pain, over her RUQ and less so bladder. She has no nausea/vom iting/feve rs/chills. She appears well on exam with normal VS. Her abdomen as mild fullness on the right without focally distended bladder.14 fr Mackey was placed with urine expelling around the mackey, not through, but fell out immediatel y on standing. She has an appointmen t with her PCP tomorrow and palliative care in a few days. Impression :Urinary retention Plan:Unabl e to obtain UA.-Patrick larkin to go the ER Will see her PCP tomorrow at 10 and will discuss with her. Primary care, abby seymour referral to urology Dispositio n: We discussed the diagnostic uncertaint y of home visits and the risk associated with this. In this case, the patient and I felt this to be an acceptable and reasonable amount of risk given the benefit of avoiding an ED visit. We discussed the need to seek care urgently/e mergently in the setting of any new or worsening serious symptoms, particular ly changes to consciousn ess, chest pain, dyspnea. History of pressure injury [id number] Z87.2 [id number] Healing pressure ulcer on her heel reviewed and dressed with foam dressing. Health Concerns Section Related Observation LastModified by Organization Detai ls LastModified Time None Recorded Concern Status LastModified by Organization Details LastModified Time None Recorded Advance Directives Directive None Recorded Payers Insurance Date Sequence Insurance Name Policy Number Policy Reich Covered Member ID Reich Member ID Guarantor Name 04/15/2025 1 [facility] - DOS ON OR AFTER 2023 - DUAL ELIGIBLE - [employer] OPT[employer] AND ONE CARE (MEDICARE REPLACEMENT/ADV ANTAGE - HMO) Allyson Douglas [id number] Allyson Douglas Notes Date Note Type Note Provider Name and Address Organization Details Recorded Time 04/15/2025 text/html HPI: Member called in to the [facility]. Reports her mackey catheter fell out yesterday approx 4pm. Mbr request for new catheter to be placed and states she has one in the home. Mbr states she was not urinating at first, but today has had increase in urination. Mbr states F/C was originally placed approx 3 months ago, due to mbr with scleroderma, bed bound, and urinary retention per mbr. Mbr denies abd pain or pressure, fever, chills, malodorous urine, blood in urine, or further s/sx at time of call. Mbr does not have a urologist. Mbr does report PCP Appt scheduled tomorrow and will discuss with PCP. Mbr states she felt like she had a UTI the past few days before the catheter fell out. Mbr was advised a referral would be placed on her behalf for evaluation. ................... ................... ................... ................... ................... ................... ................... ........ [facility] Nurse Triage Notes ([place]): Reason For Request: mackey concerns Chief Complaints: Urinary Catheter/Nephrostom y Tube Problems PMH: Autoimmune Diseases (e.g., Lupus), Fibromyalgia, Depression, Anxiety Disorder, Hypertension, Irritable Bowel Syndrome (IBS), Incontinence, Post-Traumatic Stress Disorder (PTSD) PMH Reviewed at 04/15/2025 12:51 Allergies Reviewed at 04/15/2025 12:51 Comments: HPI reviewed ................... ................... ................... ................... ................... ................... ................... ........ Blender Operator Note From Jack Michel: 54 yo female co mackey falling out after insertion 3 months ago by nurse who did not clean area with iodine and she states it was not changed in 3 months and hurt for last two month and has been leaking around the urethra for a week or two and then mackey came out with balloon intact. Pt states she had urinary retention 3 months ago and has had mackey bag changes but may be original Mackey catheter. States she urinated a lot this morning and has been dribbling out since but small amounts. No smell or color noted. Multiple calls to Dr. Cota as history was not perfectly clear . Advised to attempt Mackey catheter placement and use lidocaine 1%.. GLASS POLISHER was there to help with flashlight and spreading of legs. Pt was advised of need for female attendant and specifically wanted the Mackey catheter. Mackey catheter was placed in urethra with good visualization with urine coming out around catheter upon initial insertion.GLASS POLISHER noted it appeared to go in correct location. Balloon inflated to 10 cc with pt denying pain or discomfort but states it feels slightly better. No urine from catheter despite gravity assistance. Pt stood on her right foot with assistance and catheter came out. Suspect a possible ulceration. Belly was soft nontender. No bladder distention palpated. Dr. Cota suspected possible urethra ulceration. Urethral opening was pink and appeared distended but no ulceration visualized. Pt has chronic decubitus ulcer on back and currently has a small ulceration that is painful on her left heel. Picture taken of ulceration on foot. Follow up call with Dr. Cota who advised pt to follow up at her 1040 pop appt tomorrow. Pt in no distress and states she feels comfortable waiting till tomorrow. Advised of red flags and bladder distention signs that would necessitate calling 911. pt aware and agrees. Spoke with [place] her poa and ride to hospital. Pts bar assistant also willing to drive her to hospital if needed. ................... ................... ................... ................... ................... ................... ................... ........ [facility] Consulted: Alessandra Matute ................... ................... ................... ................... ................... ................... ................... ........ Disposition: Fulfilled Alessandra Matute MD [address] [facility],[address], [place], [phone], [place] [facility] [place], [facility] 04/15/2025 18:05:51 OBGyn Episode No OBEpisode recorded.
--- OUTSIDE RECORDS SUMMARY | 2025-11-17 16:59 | XMS_ITS | Patient Health Record ---
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 Name Role Phone ANGELLA ROBERTS Primary Care Provider [phone] Marco Sharif Unavailable [phone] Dianna Vizcarra Unavailable [phone] Allergies Allergen (clinical drug ingredient) Drug/Non Drug Allergy documented on EMR Reaction Allergy Type Onset Date Status doxycycline Doxycycline Hyclate hives and swelling Drug Allergy Active Results Component Value Reference Range Notes Urine Culture, [id number] Reviewed date:10/30/2025 07:39:49 AM Interpretation: Performing Lab:[facility] [place], [address], [address], [employer], Phone - [phone], [facility] Notes/Report: Urine Culture, Routine Final report Result 1 Culture shows less than 10,000 colony forming units of bacteria per milliliter of urine. This colony count is not generally considered to be clinically significant. Written Authorization Reviewed date:11/05/2025 05:45:49 PM Interpretation: Performing Lab:[facility] [place], [address] [facility], Phone - [phone], Director - Philip Notes/Report: Written Authorization No Wri tten Authorization Received. Test, Urine-[id number] Reviewed date:11/05/2025 05:45:55 PM Interpretation: Performing Lab:[facility] [place], [address] [facility] [facility], Phone - [phone], Director - Philip Notes/Report: Test, Urine Negative Negative Urine Culture, [id number] Reviewed date:10/17/2025 08:52:17 AM Interpretation: Performing Lab:[facility] [place], [address], [address], [employer], Phone - [phone], Director - [facility] Notes/Report: Urine Culture, Routine Final report Result 1 Citrobacter freundii Some Enterobacterales may develop resistance during therapy with third-generation cephalosporins. This resistance is most commonly seen with Citrobacter freundii complex, Enterobacter cloacae complex, and Klebsiella aerogenes. Isolates that initially test susceptible may become resistant within a few days after initiation of therapy. Testing subsequent isolates may be warranted if clinically indicated. (CLSI [id number]) Greater than 100,000 colony forming units per mL Antimicrobial Susceptibility S = Susceptible; I = Intermediate; R = Resistant P = Positive; N = Negative MICS are expressed in micrograms per mL Antibiotic RSLT#1 RSLT#2 RSLT#3 RSLT#4 Amoxicillin/Clavulanic Acid R Cefepime S Cefoxitin R Cefpodoxime S Ceftriaxone S Ciprofloxacin S Ertapenem S Gentamicin S Levofloxacin S Meropenem S Nitrofurantoin S Tetracycline S Tobramycin S No Serum Gel Received TNP Test not performed. No serum gel received. TEST: [id number] hCG,Beta Subunit,Qual hCG,Beta Subunit,[id number] Reviewed date:10/17/2025 08:51:48 AM Interpretation: Performing Lab:[facility] [place], [address], [address], [place], Phone - [phone], Director - [facility] Notes/Report: hCG,Beta Subunit,Qual TNP Test n ot performed. No serum gel received. Reason For Referral Reason please refer to a tritionist for anorexia and severe weight loss Please evaluate and treat Diagnosis 1 Anorexia nervosa, re stricting type, mild (F50.010) Diagnosis 2 Body mass index (BMI ) 19 or less, adult (Z68.1) Diagnosis 3 Moderate protein-liz orie malnutrition (E44.0) Referral Organization [facility] Referring Provider First Name Marco Referring Provider Last Name Chante Referring Provider Speciality Internal M edicine Referred Provider Specialty Nutrition General Notes Please call the justine ent to schedule the appointment, Encounter created and SMS sent to the pt.Phuc Charmain 07/03/2025 04:16:53 AM > Referral Priority Routine Reason Severe neuropathic p ain Diagnosis 1 Systemic sclerosis w ith polyneuropathy (M34.83) Referral Organization [facility] Referring Provider First Name Marco Referring Provider Last Name Chante Referring Provider Speciality Internal edicine Referred Provider Specialty Pain Medicin e Referral Priority Routine Reason Please evaluate and treat, [facility] Please evaluate and treat Diagnosis 1 Retention of urine, unspecified (R33.9) Referral Organization [facility] Referring Provider First Name Dianna Referring Provider Last Name Carmita Referred Provider Specialty Urology General Notes Please call the justine ent to schedule the appointment Referral Priority Routine Reason hospice care pleas e evaluate and treat Diagnosis 1 Anorexia nervosa, re stricting type, mild (F50.010) Diagnosis 2 Dyskinesia of esopha josette (K22.4) Referral Organization [facility] Referring Provider First Name Dianna Referring Provider Last Name aCrmita Referred Provider Specialty Hospice and Palliative Medicine General Notes Referral was faxed t o [facility]. Please contact patient for scheduling.Kirit Rashida 08/06/2025 11:14:22 AM > Referral Priority Routine Reason left hip pain please evaluate and treat Diagnosis 1 Left hip pain (M25.5 52) Referral Organization [facility] Referring Provider First Name Dianna Referring Provider Last Name Carmita Referred Provider Specialty Orthopedic S urgery General Notes Referral was faxed t o [facility]. Please contact patient for scheduling.Kirit Rashida 08/07/2025 04:46:56 PM > Referral Priority Routine Reason [facility] Please evaluate and treat Diagnosis 1 Systemic sclerosis w ith polyneuropathy (M34.83) Referral Organization [facility] Referring Provider First Name ANGELLA Referring Provider Last Name ARMANDO Referring Provider [facility] Referred Provider Specialty Rheumatology General Notes Please call the justine ent to schedule the appointment, Encounter created and SMS sent to the pt., Shawnee Friend 09/15/2025 04:23:24 PM > Referral Priority Routine Reason History of falls p lease evaluate and treat Diagnosis 1 History of falling ( Z91.81) Referral Organization [facility] Referring Provider First Name ANGELLA Referring Provider Last Name ARMANDO Referring Provider Speciality Internal edicine Referred Provider Specialty Physical The rapist General Notes Referral was faxed t o [facility]. Please contact patient for scheduling.Kirit Rashida 09/22/2025 08:49:37 AM > Referral Priority Routine Reason Repeated falls roman luate and treat Diagnosis 1 History of falling ( Z91.81) Referral Organization [facility] Referring Provider First Name PERALES Referring Provider Last Name [facility] Referring Provider Speciality Internal edicine Referred Provider Specialty Physical The rapist General Notes Referral was faxed t o [facility]. Please contact patient for scheduling., Monica Beth 09/22/2025 04:46:05 PM > Referral Priority Routine Reason PT and OT please e valuate and treat Diagnosis 1 Unsteadiness on feet (R26.81) Referral Organization [facility] Referring Provider First Name PERALES Referring Provider Last Name [facility] Referring Provider [facility]ity [facility] Referred Provider Specialty Other Medica l Care General Notes Referral was faxed t o [email or web address] [facility]. Please contact patient for scheduling., Monica Beth 09/30/2025 04:26:12 PM > Referral Priority Routine Reason left hip pain Plea se evaluate and treat Diagnosis 1 Left hip pain (M25.5 52) Referral Organization [facility] Referring Provider First Name PERALES Referring Provider Last Name [facility] Referring Provider Speciality [facility] Referred Provider Specialty Orthopedic S urgery General Notes Please call the justine ent to schedule the appointment, Encounter created and SMS sent to the pt.Phuc Charmain 10/09/2025 07:32:17 AM > Referral Priority Routine Medications Medication SIG (Take, Route, Frequency, Duration) Notes Start Date End Date Status Zoloft 100 MG 1 tablet Orally Once a day; Duration: 30 days Not-Taking OxyCONTIN 10 MG 1 tablet Orally every 12 hrs; Duration: 28 days Partial Fill upon Patient Request 11/07/2025 Active Sertraline HCl 100 MG 1.5 tablets Orally Once a day; Duration: 30 days 07/29/2025 Active Gabapentin 800 MG 1 tablet Orally 3 times a day; Duration: 30 days Active Baclofen 20 MG 1 tablet with food or milk as needed Orally 4 times a day; Duration: 30 days 09/15/2025 Active Naltrexone HCl 50 MG 1 tablet Orally Once a day; Duration: 30 days Active Clotrimazole 2 % 1 application at bedtime Vaginal Once a day; Duration: 3 days 07/01/2025 Active clonazePAM 2 MG 1 tablet Orally 4 times a day; Duration: 28 days Not-Taking Vitamin D (Ergocalciferol) 31848 UNIT 1 capsule Orally Active Fluconazole 100 MG 1 tablet Orally daily; Duration: 7 days 07/01/2025 Not-Taking Unisom PM Pain 50-325 MG 1 tablet at bedtime as needed Orally Once a day Active Doxycycline Hyclate 100 MG 1 capsule Orally Twice a day; Duration: 10 days 07/10/2025 Not-Taking Advil Migraine Activ e Mirtazapine 30 MG 1 tablet at bedtime Orally Once a day Active Bactrim DS 800-160 MG 1 tablet Orally Twice a day; Duration: 3 days 10/15/2025 Active Acamprosate Calcium 333 MG 2 tablets Orally Three times a day; Duration: 30 days 09/15/2025 Active Wheelchair - with long arms; Duration: 90 days 10/22/2025 Active cloNIDine HCl 0.2 MG 1 tablet Orally 3 times a day 09/15/2025 Active Problems Problem Type SNOMED Code ICD Code Onset Dates Problem Status W/U Status Risk Notes Problem Malnutrition of moderate degree (Aguilar: 60% to less than 75% of standard weight) (61955230) Moderate protein-calorie malnutrition (E44.0) Active confirmed Problem Alcohol dependence (19891452) Alcohol dependence, uncomplicated (F10.20) Active confirmed Problem Tobacco user (081904132) Nicotine dependence, unspecified, uncomplicated (F17.200) Active confirmed Problem Moderate recurrent major depression (91680535) Major depressive disorder, recurrent, moderate (F33.1) Active confirmed Problem Generalized anxiety disorder (22095694) Generalized anxiety disorder (F41.1) Active confirmed Problem Insomnia (765399771) Insomnia, unspecified (G47.00) Active confirmed Problem Dyskinesia of esophagus (48333751) Dyskinesia of esophagus (K22.4) Active confirmed Problem Polyneuropathy due to systemic sclerosis (disorder) (468976514663568) 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) Active confirmed Problem Amenorrhea (04555936) Amenorrhea, unspecified (N91.2) Active confirmed Problem Abnormal gait (92961726) Unsteadiness on feet (R26.81) Active confirmed Vital Signs Heart Rate 90 /min 10/08/2025 Temperature 97.1 degrees Fahrenheit 10/08/2025 Oximetry 98 % 10/08/2025 Blood pressure diastolic 70 mm Hg 10/08/2025 Height 5'3'' in 10/08/2025 Blood pressure systolic 110 mm Hg 10/08/2025 Weight 98.4 lbs 10/08/2025 BMI 17.43 kg/m2 10/08/2025 Encounters Encounter Location Date Provider Diagnosis [address] [place] [address] 09/03/[address] [place] [address] 11/05/[address] [place] [address] 07/01/2025 Marco Sharif Encounter for screen ing for cardiovascular disorders Z13.6 ; Systemic sclerosis with polyneuropathy M34.83 ; Acute candidiasis of vulva and vagina B37.31 ; Moderate protein-calorie malnutrition E44.0 ; Dyskinesia of esophagus K22.4 ; Other specified disease of esophagus K22.89 ; longterm (current) use of opiate analgesic Z79.891 ; Body mass index (BMI) 19 or less, adult Z68.1 ; Anorexia nervosa, restricting type, mild F50.010 and Major depressive disorder, recurrent, moderate F33.[address] [place] [address] 07/25/2025 Ghadeer Carmeloloum Major depressive disorder, recurrent, moderate F33.1 ; Retention of urine, unspecified R33.9 and Impacted cerumen of left ear H61.[address] [place] [address] 09/15/2025 ANGELLA ROBERTS Major depressive disorder, recurrent, moderate F33.1 ; Alcohol dependence, uncomplicated F10.20 ; Systemic sclerosis with polyneuropathy M34.83 ; Generalized anxiety disorder F41.1 ; Alcohol abuse counseling and surveillance of alcoholic Z71.41 ; Nicotine dependence, unspecified, uncomplicated F17.200 and Tobacco abuse counseling Z71.[address] [place] [address] 10/08/2025 PERALES GUL Major depressive disorder, recurrent, moderate F33.1 ; Alcohol dependence, uncomplicated F10.20 ; Systemic sclerosis with polyneuropathy M34.83 ; Generalized anxiety disorder F41.1 ; Insomnia, unspecified G47.00 ; Alcohol abuse counseling and surveillance of alcoholic Z71.41 ; Nicotine dependence, unspecified, uncomplicated F17.200 and Tobacco abuse counseling Z71.6 [facility] [address] [place] [address] 10/13/2025 PERALES GUL Frequency of micturition R35.0 and Amenorrhea, unspecified N91.2 [facility] [address] [place] [address] 10/28/2025 PERALES GUL Frequency of micturition R35.0 [facility] [address] [place] [address] 07/03/[address] [place] [address] 07/07/2025 [facility] [address] [place] [address] 07/10/2025 [facility] [address] [place] [address] 07/15/[address] [place] [address] 07/17/[address] [place] [address] 07/23/2025 Dianna Rhodesloum [facility] [address] [place] [address] [address] [place] [address] 07/28/2025 Ghadelui Rhodesloum Major depressive disorder, recurrent, moderate F33.1 [facility] [address] [facility] [address] [place] [address] 07/28/2025 [facility] [address] [place] [address] [address] [place] [address] 07/29/2025 [facility] [address] [place] [address] 07/29/2025 [facility] [address] [place] [address] 07/29/2025 Ghadeer Mazloum Major depressive disorder, recurrent, moderate F33.1 [facility] [address] [place] [address] 08/04/2025 [facility] [address] [place] [address] 08/05/2025 [facility] [address] [place] [address] 08/07/2025 [facility] M25.55 2 [facility] [address] [place] [address] 08/12/2025 [facility] Major depressive disorder, recurrent, moderate F33.1 [facility] [address] [place] [address] 08/14/2025 [facility] [address] [place] [address] 08/20/2025 [facility] [address] [place] [address] 08/21/2025 [facility] [address] [place] [address] 08/25/2025 [facility] [address] [place] [address] 08/25/2025 [facility] [address] [place] [address] 09/10/2025 [facility] [address] [place] [address] 09/15/2025 [facility] [address] [facility] [place] [address] 09/15/2025 [facility] [address] [facility] [place] [address] 09/15/2025 [facility] [address] [facility] [place] [address] 09/16/2025 [facility] [address] [facility] [place] [address] 09/17/2025 [facility] [address] [facility] [place] [address] 09/22/2025 [facility] [address] [place] [address] 09/23/2025 [facility] [address] [place] [address] 09/24/2025 [facility] [address] [place] [address] 09/29/2025 [facility] [address] [place] [address] 10/07/2025 [facility] [address] [place] [address] 10/08/2025 [facility] [address] [facility] [place] [address] 10/08/2025 [facility] [address] [place] [address] 10/09/2025 [facility] [address] [place] [address] 10/09/2025 [facility] [address] [place] [address] 10/09/2025 [facility] [address] [place] [address] 10/13/2025 [facility] [address] [facility] [place] [address] 10/14/2025 [facility] [address] [place] [address] 10/14/2025 [facility] [address] [place] [address] 10/15/2025 [facility] [address] [place] [address] 10/15/2025 [facility] [address] [facility] [place] [address] 10/21/2025 [facility] [address] [place] [address] 10/22/2025 [facility] [address] [facility] [place] [address] 10/22/2025 [facility] Unsteadiness on feet R26.81 [facility] [address] [facility] [place] [address] 10/27/2025 [facility] [address] [place] [address] 10/27/2025 [facility] [address] [facility] [place] [address] 10/29/2025 [facility] [address] [facility] [place] [address] 10/31/2025 Dianna Vizcarra [facility] [address] [place] [address] 11/05/2025 [facility] [address] [place] [address] 11/07/2025 Dianna Vizcarra Assessments Encounter Date Diagnosis (ICD Code) Assessment Notes Treatment Notes Treatment Clinical Notes Section Notes 07/01/2025 Systemic sclerosis with polyneuropathy (ICD-10 - M34.83) 54-year-old lady with history of scleroderma associated with poorly neuropathy complicated with polyneuropathy, esophageal dysmotility, mild dysphagia, moderate to severe malnutrition is here today for a new PCP visit plan as following Systemic sclerosis with a polyneuropathy history of scleroderma diagnosed 15 years ago. Patient cannot remember the name of her health care liaison. We will get all the medical records. She is currently not on any treatment for that. She states that previously she was on hospice and then she revoked it. We will check a basic metabolic panel CBC, thyroid hormones, magnesium, vitamin B12 and vitamin D level as patient has also dysphagia and weight loss. Esophageal dyskinesia, dysphagia, associated with scleroderma, she reports that she has been barium studies in the past which showed esophageal dysmotility but there was no nicole aspiration she is supposed to be on a small bite size meals BMI of 15, moderate to severe malnutrition, weight loss zone more than 30-40 pounds in 1 year. Due to poor by mouth intake poor appetite, she also has underlying anxiety and depression which may be contributing further. We talked about Ensure and making home smoothies. 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 She is on Zoloft 75 Ese daily and also take clonazepam 2 mg 4 times a day 07/01/2025 Encounter for screening for cardiovascular disorders (ICD-10 - Z13.6) 54-year-old lady with history of scleroderma associated with poorly neuropathy complicated with polyneuropathy, esophageal dysmotility, mild dysphagia, moderate to severe malnutrition is here today for a new PCP visit plan as following Systemic sclerosis with a polyneuropathy history of scleroderma diagnosed 15 years ago. Patient cannot remember the name of her health care liaison. We will get all the medical records. She is currently not on any treatment for that. She states that previously she was on hospice and then she revoked it. We will check a basic metabolic panel CBC, thyroid hormones, magnesium, vitamin B12 and vitamin D level as patient has also dysphagia and weight loss. Esophageal dyskinesia, dysphagia, associated with scleroderma, she reports that she has been barium studies in the past which showed esophageal dysmotility but there was no nicole aspiration she is supposed to be on a small bite size meals BMI of 15, moderate to severe malnutrition, weight loss zone more than 30-40 pounds in 1 year. Due to poor by mouth intake poor appetite, she also has underlying anxiety and depression which may be contributing further. We talked about Ensure and making home smoothies. 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 She is on Zoloft 75 Ese daily and also take clonazepam 2 mg 4 times a day 07/28/2025 Major depressive disorder, recurrent, moderate (ICD-10 - F33.1) 07/29/2025 Major depressive disorder, recurrent, moderate (ICD-10 - F33.1) 08/07/2025 Left hip pain (ICD-10 - M25.552) 08/12/2025 Major depressive disorder, recurrent, moderate (ICD-10 - F33.1) 09/15/2025 Alcohol dependence, uncomplicated (ICD-10 - F10.20) Allyson is 55-year-old female with history of scleroderma,, with complication of peripheral neuropathy gait disturbance, mostly wheelchair-bound cared by a STAMP PRESSER esophageal dysmotility, mild dysphagia, malnutrition,is here today For follow-up after discharged from [facility] for alcohol withdrawal and alcohol withdrawal seizures and she was treated accordingly and she was given Keppra and patient left AMA . Plan is as follows Alcohol dependence. Complications of alcohol discussed. She started on naltrexone 50 mg 1 tablet daily along with Acomprosatte 333 mg and take 2 pills 3 times a day. Continue clonidine 0.1 mg daily at bedtime and she is also on gabapentin 800 mg 3 times a day. She talks to nurse practitioner and therapist online. Generalized anxiety disorder/depression. Continue on Zoloft and she sees psychiatry nurse practitioner. She was asking about clonazepam and currently she is not taking clonazepam. We declined high doses. We suggested that we should get records from her previous primary care physician. Systemic sclerosis with polyneuropathy. Continue on gabapentin 800 mg 1 tablet 3 times a day and she is given baclofen 20 mg 1 tablet 3 times a day which will help with muscle relaxation and pain. She is also given referral to see a health care liaison. Nicotine dependence. Smoking cessation discussed and she mentions she has not smoked for the past few days. We will do low-dose CT scan of the lungs because she has more than 92-[id number]-ikau history of smoking. 07/25/2025 Major depressive disorder, recurrent, moderate (ICD-10 - F33.1) 54-year-old lady with history of scleroderma associated with poorly neuropathy complicated with polyneuropathy, esophageal dysmotility, mild dysphagia, moderate to severe malnutrition is here today for Follow-up on the recent ER visit. The patient was found out to have UTI, she did also have hyperkalemia with a level of 3.2 and she was repleted with 40 mEq of potassium.Plan as follows Urinary retention. She still has the catheter however advised patient that this is intended for short period time. If she develops any fever or blood in the urine then she has to go back to the emergency. I have referred patient back again to urology She is still on the antibiotic and probiotics. Depression. I have increased the Zoloft 100 mg. She does see a therapist. Continue on clonazepam as needed. Will follow up in 4 weeks Cerumen impaction. A lavage is performed in the office today, I have also recommended using debrox. We will recheck BMP however she already has a standing order to be done Recent ER Visit discussed with the patient General concerns have been discussed I have rendered the services for this patient under direct supervision of Dr. Roberts, who did not see the patient but was available upon request 09/15/2025 Major depressive disorder, recurrent, moderate (ICD-10 - F33.1) Allyson is 55-year-old female with history of scleroderma,, with complication of peripheral neuropathy gait disturbance, mostly wheelchair-bound cared by a STAMP PRESSER esophageal dysmotility, mild dysphagia, malnutrition,is here today For follow-up after discharged from [facility] for alcohol withdrawal and alcohol withdrawal seizures and she was treated accordingly and she was given Keppra and patient left AMA . Plan is as follows Alcohol dependence. Complications of alcohol discussed. She started on naltrexone 50 mg 1 tablet daily along with Acomprosatte 333 mg and take 2 pills 3 times a day. Continue clonidine 0.1 mg daily at bedtime and she is also on gabapentin 800 mg 3 times a day. She talks to nurse practitioner and therapist online. Generalized anxiety disorder/depression. Continue on Zoloft and she sees psychiatry nurse practitioner. She was asking about clonazepam and currently she is not taking clonazepam. We declined high doses. We suggested that we should get records from her previous primary care physician. Systemic sclerosis with polyneuropathy. Continue on gabapentin 800 mg 1 tablet 3 times a day and she is given baclofen 20 mg 1 tablet 3 times a day which will help with muscle relaxation and pain. She is also given referral to see a health care liaison. Nicotine dependence. Smoking cessation discussed and she mentions she has not smoked for the past few days. We will do low-dose CT scan of the lungs because she has more than 94-[id number]-[id number] history of smoking. 10/08/2025 Alcohol dependence, uncomplicated (ICD-10 - F10.20) Allyson is 55-year-old female with history of scleroderma,, with complication of peripheral neuropathy gait disturbance, insomnia, mostly wheelchair-bound cared by a STAMP PRESSER esophageal dysmotility, mild dysphagia, malnutrition, alcohol dependence and she was seen at [facility], alcohol withdrawal seizures, history of benzodiazepine dependence for a long time, multiple joint osteoarthritis,is here today For follow-up with her STAMP PRESSER Lore.. Plan is as follows Alcohol dependence.She is sober since her discharge from [facility]. Take naltrexone 50 mg 1 tablet daily along with Acomprosatte 333 mg and take 2 pills 3 times a day. Continue clonidine 0.2 mg daily 3 times a day and she is also on gabapentin 800 mg 3 times a day. She talks to nurse practitioner and therapist online. Generalized anxiety disorder/depression. Continue on Zoloft and she sees psychiatry nurse practitioner. She he is not on clonazepam anymore. She was on very high doses in the past.. Insomnia. Sleep hygiene discussed. Advised to increase mirtazapine to 30 mg 1 tablet daily and take nfwv-pvx-qirnmlq melatonin 6 mg and take it at least an hour before going to bed and add magnesium glycinate 400 mg daily. Systemic sclerosis with polyneuropathy. Continue on gabapentin 800 mg 1 tablet 3 times a day and she is given baclofen 20 mg 1 tablet 4 times a day which will help with muscle relaxation and pain. She is also given referral to see a health care liaison. Gait instability. Secondary to deconditioning, neuropathy, degenerative disc disease/osteoarthrit is. She is given referral for home physical therapy and occupational therapy. Nicotine dependence. Smoking cessation discussed and she mentions she has not smoked for the past few days. We will do low-dose CT scan of the lungs because she has more than 58-[id number]-xbjr history of smoking. Medications reviewed and updated and questions answered. 10/08/2025 Major depressive disorder, recurrent, moderate (ICD-10 - F33.1) Allyson is 55-year-old female with history of scleroderma,, with complication of peripheral neuropathy gait disturbance, insomnia, mostly wheelchair-bound cared by a STAMP PRESSER esophageal dysmotility, mild dysphagia, malnutrition, alcohol dependence and she was seen at [facility], alcohol withdrawal seizures, history of benzodiazepine dependence for a long time, multiple joint osteoarthritis,is here today For follow-up with her STAMP PRESSER Lore.. Plan is as follows Alcohol dependence.She is sober since her discharge from [facility]. Take naltrexone 50 mg 1 tablet daily along with Acomprosatte 333 mg and take 2 pills 3 times a day. Continue clonidine 0.2 mg daily 3 times a day and she is also on gabapentin 800 mg 3 times a day. She talks to nurse practitioner and therapist online. Generalized anxiety disorder/depression. Continue on Zoloft and she sees psychiatry nurse practitioner. She he is not on clonazepam anymore. She was on very high doses in the past.. Insomnia. Sleep hygiene discussed. Advised to increase mirtazapine to 30 mg 1 tablet daily and take ecem-ras-fshevoi melatonin 6 mg and take it at least an hour before going to bed and add magnesium glycinate 400 mg daily. Systemic sclerosis with polyneuropathy. Continue on gabapentin 800 mg 1 tablet 3 times a day and she is given baclofen 20 mg 1 tablet 4 times a day which will help with muscle relaxation and pain. She is also given referral to see a health care liaison. Gait instability. Secondary to deconditioning, neuropathy, degenerative disc disease/osteoarthrit is. She is given referral for home physical therapy and occupational therapy. Nicotine dependence. Smoking cessation discussed and she mentions she has not smoked for the past few days. We will do low-dose CT scan of the lungs because she has more than 88-qdfg-urzk history of smoking. Medications reviewed and updated and questions answered. 10/13/2025 Frequency of micturition (ICD-10 - R35.0) Dr. Roberts was not ified and said a test is not needed but can send an order for urine hCG. I asked her what her symptoms were, and she said everything. I asked her to specify her symptoms, but she continued to say, I have everything; just look in my chart. I asked her again, and she said diarrhea, frequent urination, huge stomach, and going crazy. Pt's STAMP PRESSER, Lore Infante, came to the front window while the patient was in the restroom to discuss her mental health and thinking that she's . However, she was told that because she wasn't on her HIPAA or a healthcare proxy, unfortunately, we couldn't discuss anything with her. STAMP PRESSERLore, did express extreme concern for the patient's mental health. Urine will be sent out for confirmation and urine hCG. She is aware the test may not be covered and said, My trust will cover it. 10/22/2025 Unsteadiness on feet (ICD-10 - R26.81) 10/28/2025 Frequency of micturition (ICD-10 - R35.0) 10/13/2025 Amenorrhea, unspecified (ICD-10 - N91.2) Dr. Roberts was not ified and said a test is not needed but can send an order for urine hCG. I asked her what her symptoms were, and she said everything. I asked her to specify her symptoms, but she continued to say, I have everything; just look in my chart. I asked her again, and she said diarrhea, frequent urination, huge stomach, and going crazy. Pt's STAMP PRESSER, Lore Infante, came to the front window while the patient was in the restroom to discuss her mental health and thinking that she's . However, she was told that because she wasn't on her HIPAA or a healthcare proxy, unfortunately, we couldn't discuss anything with her. STAMP PRESSER, Lore, did express extreme concern for the patient's mental health. Urine will be sent out for confirmation and urine hCG. She is aware the test may not be covered and said, My trust will cover it. 10/08/2025 Systemic sclerosis with polyneuropathy (ICD-10 - M34.83) Allyson is 55-year-old female with history of scleroderma,, with complication of peripheral neuropathy gait disturbance, insomnia, mostly wheelchair-bound cared by a STAMP PRESSER esophageal dysmotility, mild dysphagia, malnutrition, alcohol dependence and she was seen at [facility], alcohol withdrawal seizures, history of benzodiazepine dependence for a long time, multiple joint osteoarthritis,is here today For follow-up with her STAMP PRESSER Lore.. Plan is as follows Alcohol dependence.She is sober since her discharge from [facility]. Take naltrexone 50 mg 1 tablet daily along with Acomprosatte 333 mg and take 2 pills 3 times a day. Continue clonidine 0.2 mg daily 3 times a day and she is also on gabapentin 800 mg 3 times a day. She talks to nurse practitioner and therapist online. Generalized anxiety disorder/depression. Continue on Zoloft and she sees psychiatry nurse practitioner. She he is not on clonazepam anymore. She was on very high doses in the past.. Insomnia. Sleep hygiene discussed. Advised to increase mirtazapine to 30 mg 1 tablet daily and take lxuk-kyt-wtcnzgc melatonin 6 mg and take it at least an hour before going to bed and add magnesium glycinate 400 mg daily. Systemic sclerosis with polyneuropathy. Continue on gabapentin 800 mg 1 tablet 3 times a day and she is given baclofen 20 mg 1 tablet 4 times a day which will help with muscle relaxation and pain. She is also given referral to see a health care liaison. Gait instability. Secondary to deconditioning, neuropathy, degenerative disc disease/osteoarthrit is. She is given referral for home physical therapy and occupational therapy. Nicotine dependence. Smoking cessation discussed and she mentions she has not smoked for the past few days. We will do low-dose CT scan of the lungs because she has more than 17-tcay-lype history of smoking. Medications reviewed and updated and questions answered. 09/15/2025 Systemic sclerosis with polyneuropathy (ICD-10 - M34.83) Allyson is 55-year-old female with history of scleroderma,, with complication of peripheral neuropathy gait disturbance, mostly wheelchair-bound cared by a STAMP PRESSER esophageal dysmotility, mild dysphagia, malnutrition,is here today For follow-up after discharged from [facility] for alcohol withdrawal and alcohol withdrawal seizures and she was treated accordingly and she was given Keppra and patient left AMA . Plan is as follows Alcohol dependence. Complications of alcohol discussed. She started on naltrexone 50 mg 1 tablet daily along with Acomprosatte 333 mg and take 2 pills 3 times a day. Continue clonidine 0.1 mg daily at bedtime and she is also on gabapentin 800 mg 3 times a day. She talks to nurse practitioner and therapist online. Generalized anxiety disorder/depression. Continue on Zoloft and she sees psychiatry nurse practitioner. She was asking about clonazepam and currently she is not taking clonazepam. We declined high doses. We suggested that we should get records from her previous primary care physician. Systemic sclerosis with polyneuropathy. Continue on gabapentin 800 mg 1 tablet 3 times a day and she is given baclofen 20 mg 1 tablet 3 times a day which will help with muscle relaxation and pain. She is also given referral to see a health care liaison. Nicotine dependence. Smoking cessation discussed and she mentions she has not smoked for the past few days. We will do low-dose CT scan of the lungs because she has more than 50-pzmd-ymae history of smoking. 07/25/2025 Retention of urine, unspecified (ICD-10 - R33.9) 54-year-old lady with history of scleroderma associated with poorly neuropathy complicated with polyneuropathy, esophageal dysmotility, mild dysphagia, moderate to severe malnutrition is here today for Follow-up on the recent ER visit. The patient was found out to have UTI, she did also have hyperkalemia with a level of 3.2 and she was repleted with 40 mEq of potassium.Plan as follows Urinary retention. She still has the catheter however advised patient that this is intended for short period time. If she develops any fever or blood in the urine then she has to go back to the emergency. I have referred patient back again to urology She is still on the antibiotic and probiotics. Depression. I have increased the Zoloft 100 mg. She does see a therapist. Continue on clonazepam as needed. Will follow up in 4 weeks Cerumen impaction. A lavage is performed in the office today, I have also recommended using debrox. We will recheck BMP however she already has a standing order to be done Recent ER Visit discussed with the patient General concerns have been discussed I have rendered the services for this patient under direct supervision of Dr. Roberts, who did not see the patient but was available upon request 07/01/2025 Acute candidiasis of vulva and vagina (ICD-10 - B37.31) 54-year-old lady with history of scleroderma associated with poorly neuropathy complicated with polyneuropathy, esophageal dysmotility, mild dysphagia, moderate to severe malnutrition is here today for a new PCP visit plan as following Systemic sclerosis with a polyneuropathy history of scleroderma diagnosed 15 years ago. Patient cannot remember the name of her health care liaison. We will get all the medical records. She is currently not on any treatment for that. She states that previously she was on hospice and then she revoked it. We will check a basic metabolic panel CBC, thyroid hormones, magnesium, vitamin B12 and vitamin D level as patient has also dysphagia and weight loss. Esophageal dyskinesia, dysphagia, associated with scleroderma, she reports that she has been barium studies in the past which showed esophageal dysmotility but there was no nicole aspiration she is supposed to be on a small bite size meals BMI of 15, moderate to severe malnutrition, weight loss zone more than 30-40 pounds in 1 year. Due to poor by mouth intake poor appetite, she also has underlying anxiety and depression which may be contributing further. We talked about Ensure and making home smoothies. 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 She is on Zoloft 75 [place] daily and also take clonazepam 2 mg 4 times a day 07/01/2025 Moderate protein-calorie malnutrition (ICD-10 - E44.0) 54-year-old lady with history of scleroderma associated with poorly neuropathy complicated with polyneuropathy, esophageal dysmotility, mild dysphagia, moderate to severe malnutrition is here today for a new PCP visit plan as following Systemic sclerosis with a polyneuropathy history of scleroderma diagnosed 15 years ago. Patient cannot remember the name of her health care liaison. We will get all the medical records. She is currently not on any treatment for that. She states that previously she was on hospice and then she revoked it. We will check a basic metabolic panel CBC, thyroid hormones, magnesium, vitamin B12 and vitamin D level as patient has also dysphagia and weight loss. Esophageal dyskinesia, dysphagia, associated with scleroderma, she reports that she has been barium studies in the past which showed esophageal dysmotility but there was no nicole aspiration she is supposed to be on a small bite size meals BMI of 15, moderate to severe malnutrition, weight loss zone more than 30-40 pounds in 1 year. Due to poor by mouth intake poor appetite, she also has underlying anxiety and depression which may be contributing further. We talked about Ensure and making home smoothies. 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 She is on Zoloft 75 [place] daily and also take clonazepam 2 mg 4 times a day 07/25/2025 Impacted cerumen of left ear (ICD-10 - H61.22) 54-year-old lady with history of scleroderma associated with poorly neuropathy complicated with polyneuropathy, esophageal dysmotility, mild dysphagia, moderate to severe malnutrition is here today for Follow-up on the recent ER visit. The patient was found out to have UTI, she did also have hyperkalemia with a level of 3.2 and she was repleted with 40 mEq of potassium.Plan as follows Urinary retention. She still has the catheter however advised patient that this is intended for short period time. If she develops any fever or blood in the urine then she has to go back to the emergency. I have referred patient back again to urology She is still on the antibiotic and probiotics. Depression. I have increased the Zoloft 100 mg. She does see a therapist. Continue on clonazepam as needed. Will follow up in 4 weeks Cerumen impaction. A lavage is performed in the office today, I have also recommended using debrox. We will recheck BMP however she already has a standing order to be done Recent ER Visit discussed with the patient General concerns have been discussed I have rendered the services for this patient under direct supervision of Dr. Roberts, who did not see the patient but was available upon request 09/15/2025 Generalized anxiety disorder (ICD-10 - F41.1) Allyson is 55-year-old female with history of scleroderma,, with complication of peripheral neuropathy gait disturbance, mostly wheelchair-bound cared by a STAMP PRESSER esophageal dysmotility, mild dysphagia, malnutrition,is here today For follow-up after discharged from [facility] for alcohol withdrawal and alcohol withdrawal seizures and she was treated accordingly and she was given Keppra and patient left AMA . Plan is as follows Alcohol dependence. Complications of alcohol discussed. She started on naltrexone 50 mg 1 tablet daily along with Acomprosatte 333 mg and take 2 pills 3 times a day. Continue clonidine 0.1 mg daily at bedtime and she is also on gabapentin 800 mg 3 times a day. She talks to nurse practitioner and therapist online. Generalized anxiety disorder/depression. Continue on Zoloft and she sees psychiatry nurse practitioner. She was asking about clonazepam and currently she is not taking clonazepam. We declined high doses. We suggested that we should get records from her previous primary care physician. Systemic sclerosis with polyneuropathy. Continue on gabapentin 800 mg 1 tablet 3 times a day and she is given baclofen 20 mg 1 tablet 3 times a day which will help with muscle relaxation and pain. She is also given referral to see a health care liaison. Nicotine dependence. Smoking cessation discussed and she mentions she has not smoked for the past few days. We will do low-dose CT scan of the lungs because she has more than 06-glyg-uwmb history of smoking. 10/08/2025 Generalized anxiety disorder (ICD-10 - F41.1) Allyson is 55-year-old female with history of scleroderma,, with complication of peripheral neuropathy gait disturbance, insomnia, mostly wheelchair-bound cared by a STAMP PRESSER esophageal dysmotility, mild dysphagia, malnutrition, alcohol dependence and she was seen at [facility], alcohol withdrawal seizures, history of benzodiazepine dependence for a long time, multiple joint osteoarthritis,is here today For follow-up with her STAMP PRESSER Lore.. Plan is as follows Alcohol dependence.She is sober since her discharge from [facility]. Take naltrexone 50 mg 1 tablet daily along with Acomprosatte 333 mg and take 2 pills 3 times a day. Continue clonidine 0.2 mg daily 3 times a day and she is also on gabapentin 800 mg 3 times a day. She talks to nurse practitioner and therapist online. Generalized anxiety disorder/depression. Continue on Zoloft and she sees psychiatry nurse practitioner. She he is not on clonazepam anymore. She was on very high doses in the past.. Insomnia. Sleep hygiene discussed. Advised to increase mirtazapine to 30 mg 1 tablet daily and take jwjj-uiw-kznvure melatonin 6 mg and take it at least an hour before going to bed and add magnesium glycinate 400 mg daily. Systemic sclerosis with polyneuropathy. Continue on gabapentin 800 mg 1 tablet 3 times a day and she is given baclofen 20 mg 1 tablet 4 times a day which will help with muscle relaxation and pain. She is also given referral to see a health care liaison. Gait instability. Secondary to deconditioning, neuropathy, degenerative disc disease/osteoarthrit is. She is given referral for home physical therapy and occupational therapy. Nicotine dependence. Smoking cessation discussed and she mentions she has not smoked for the past few days. We will do low-dose CT scan of the lungs because she has more than 38-olfr-zlbc history of smoking. Medications reviewed and updated and questions answered. 10/08/2025 Insomnia, unspecified (ICD-10 - G47.00) Allyson is 55-year-old female with history of scleroderma,, with complication of peripheral neuropathy gait disturbance, insomnia, mostly wheelchair-bound cared by a STAMP PRESSER esophageal dysmotility, mild dysphagia, malnutrition, alcohol dependence and she was seen at [facility], alcohol withdrawal seizures, history of benzodiazepine dependence for a long time, multiple joint osteoarthritis,is here today For follow-up with her STAMP PRESSER Lore.. Plan is as follows Alcohol dependence.She is sober since her discharge from [facility]. Take naltrexone 50 mg 1 tablet daily along with Acomprosatte 333 mg and take 2 pills 3 times a day. Continue clonidine 0.2 mg daily 3 times a day and she is also on gabapentin 800 mg 3 times a day. She talks to nurse practitioner and therapist online. Generalized anxiety disorder/depression. Continue on Zoloft and she sees psychiatry nurse practitioner. She he is not on clonazepam anymore. She was on very high doses in the past.. Insomnia. Sleep hygiene discussed. Advised to increase mirtazapine to 30 mg 1 tablet daily and take shzk-tqb-algjhhg melatonin 6 mg and take it at least an hour before going to bed and add magnesium glycinate 400 mg daily. Systemic sclerosis with polyneuropathy. Continue on gabapentin 800 mg 1 tablet 3 times a day and she is given baclofen 20 mg 1 tablet 4 times a day which will help with muscle relaxation and pain. She is also given referral to see a health care liaison. Gait instability. Secondary to deconditioning, neuropathy, degenerative disc disease/osteoarthrit is. She is given referral for home physical therapy and occupational therapy. Nicotine dependence. Smoking cessation discussed and she mentions she has not smoked for the past few days. We will do low-dose CT scan of the lungs because she has more than 11-lvzc-dicy history of smoking. Medications reviewed and updated and questions answered. 09/15/2025 Alcohol abuse counseling and surveillance of alcoholic (ICD-10 - Z71.41) Allyson is 55-year-old female with history of scleroderma,, with complication of peripheral neuropathy gait disturbance, mostly wheelchair-bound cared by a STAMP [employer]ER esophageal dysmotility, mild dysphagia, malnutrition,is here today For follow-up after discharged from [facility] for alcohol withdrawal and alcohol withdrawal seizures and she was treated accordingly and she was given Keppra and patient left AMA . Plan is as follows Alcohol dependence. Complications of alcohol discussed. She started on naltrexone 50 mg 1 tablet daily along with Acomprosatte 333 mg and take 2 pills 3 times a day. Continue clonidine 0.1 mg daily at bedtime and she is also on gabapentin 800 mg 3 times a day. She talks to nurse practitioner and therapist online. Generalized anxiety disorder/depression. Continue on Zoloft and she sees psychiatry nurse practitioner. She was asking about clonazepam and currently she is not taking clonazepam. We declined high doses. We suggested that we should get records from her previous primary care physician. Systemic sclerosis with polyneuropathy. Continue on gabapentin 800 mg 1 tablet 3 times a day and she is given baclofen 20 mg 1 tablet 3 times a day which will help with muscle relaxation and pain. She is also given referral to see a health care liaison. Nicotine dependence. Smoking cessation discussed and she mentions she has not smoked for the past few days. We will do low-dose CT scan of the lungs because she has more than 31-zlbb-uiib history of smoking. 07/01/2025 Dyskinesia of esophagus (ICD-10 - K22.4) 54-year-old lady with history of scleroderma associated with poorly neuropathy complicated with polyneuropathy, esophageal dysmotility, mild dysphagia, moderate to severe malnutrition is here today for a new PCP visit plan as following Systemic sclerosis with a polyneuropathy history of scleroderma diagnosed 15 years ago. Patient cannot remember the name of her health care liaison. We will get all the medical records. She is currently not on any treatment for that. She states that previously she was on hospice and then she revoked it. We will check a basic metabolic panel CBC, thyroid hormones, magnesium, vitamin B12 and vitamin D level as patient has also dysphagia and weight loss. Esophageal dyskinesia, dysphagia, associated with scleroderma, she reports that she has been barium studies in the past which showed esophageal dysmotility but there was no nicole aspiration she is supposed to be on a small bite size meals BMI of 15, moderate to severe malnutrition, weight loss zone more than 30-40 pounds in 1 year. Due to poor by mouth intake poor appetite, she also has underlying anxiety and depression which may be contributing further. We talked about Ensure and making home smoothies. 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 She is on Zoloft 75 Ese daily and also take clonazepam 2 mg 4 times a day 09/15/2025 Nicotine dependence, unspecified, uncomplicated (ICD-10 - F17.200) Allyson is 55-year-old female with history of scleroderma,, with complication of peripheral neuropathy gait disturbance, mostly wheelchair-bound cared by a STAMP [employer]ER esophageal dysmotility, mild dysphagia, malnutrition,is here today For follow-up after discharged from [facility] for alcohol withdrawal and alcohol withdrawal seizures and she was treated accordingly and she was given Keppra and patient left AMA . Plan is as follows Alcohol dependence. Complications of alcohol discussed. She started on naltrexone 50 mg 1 tablet daily along with Acomprosatte 333 mg and take 2 pills 3 times a day. Continue clonidine 0.1 mg daily at bedtime and she is also on gabapentin 800 mg 3 times a day. She talks to nurse practitioner and therapist online. Generalized anxiety disorder/depression. Continue on Zoloft and she sees psychiatry nurse practitioner. She was asking about clonazepam and currently she is not taking clonazepam. We declined high doses. We suggested that we should get records from her previous primary care physician. Systemic sclerosis with polyneuropathy. Continue on gabapentin 800 mg 1 tablet 3 times a day and she is given baclofen 20 mg 1 tablet 3 times a day which will help with muscle relaxation and pain. She is also given referral to see a health care liaison. Nicotine dependence. Smoking cessation discussed and she mentions she has not smoked for the past few days. We will do low-dose CT scan of the lungs because she has more than 43-lppo-ivxm history of smoking. 10/08/2025 Alcohol abuse counseling and surveillance of alcoholic (ICD-10 - Z71.41) Allyson is 55-year-old female with history of scleroderma,, with complication of peripheral neuropathy gait disturbance, insomnia, mostly wheelchair-bound cared by a STAMP [employer]ER esophageal dysmotility, mild dysphagia, malnutrition, alcohol dependence and she was seen at [facility], alcohol withdrawal seizures, history of benzodiazepine dependence for a long time, multiple joint osteoarthritis,is here today For follow-up with her STAMP [employer]ER Lore.. Plan is as follows Alcohol dependence.She is sober since her discharge from [facility]. Take naltrexone 50 mg 1 tablet daily along with Acomprosatte 333 mg and take 2 pills 3 times a day. Continue clonidine 0.2 mg daily 3 times a day and she is also on gabapentin 800 mg 3 times a day. She talks to nurse practitioner and therapist online. Generalized anxiety disorder/depression. Continue on Zoloft and she sees psychiatry nurse practitioner. She he is not on clonazepam anymore. She was on very high doses in the past.. Insomnia. Sleep hygiene discussed. Advised to increase mirtazapine to 30 mg 1 tablet daily and take hpiy-mzi-lbxkbyi melatonin 6 mg and take it at least an hour before going to bed and add magnesium glycinate 400 mg daily. Systemic sclerosis with polyneuropathy. Continue on gabapentin 800 mg 1 tablet 3 times a day and she is given baclofen 20 mg 1 tablet 4 times a day which will help with muscle relaxation and pain. She is also given referral to see a health care liaison. Gait instability. Secondary to deconditioning, neuropathy, degenerative disc disease/osteoarthrit is. She is given referral for home physical therapy and occupational therapy. Nicotine dependence. Smoking cessation discussed and she mentions she has not smoked for the past few days. We will do low-dose CT scan of the lungs because she has more than 43-mnmu-afgn history of smoking. Medications reviewed and updated and questions answered. 07/01/2025 Other specified disease of esophagus (ICD-10 - K22.89) 54-year-old lady with history of scleroderma associated with poorly neuropathy complicated with polyneuropathy, esophageal dysmotility, mild dysphagia, moderate to severe malnutrition is here today for a new PCP visit plan as following Systemic sclerosis with a polyneuropathy history of scleroderma diagnosed 15 years ago. Patient cannot remember the name of her health care liaison. We will get all the medical records. She is currently not on any treatment for that. She states that previously she was on hospice and then she revoked it. We will check a basic metabolic panel CBC, thyroid hormones, magnesium, vitamin B12 and vitamin D level as patient has also dysphagia and weight loss. Esophageal dyskinesia, dysphagia, associated with scleroderma, she reports that she has been barium studies in the past which showed esophageal dysmotility but there was no nicole aspiration she is supposed to be on a small bite size meals BMI of 15, moderate to severe malnutrition, weight loss zone more than 30-40 pounds in 1 year. Due to poor by mouth intake poor appetite, she also has underlying anxiety and depression which may be contributing further. We talked about Ensure and making home smoothies. 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 She is on Zoloft 75 [place] daily and also take clonazepam 2 mg 4 times a day 09/15/2025 Tobacco abuse counseling (ICD-10 - Z71.6) Allyson is 55-year-old female with history of scleroderma,, with complication of peripheral neuropathy gait disturbance, mostly wheelchair-bound cared by a STAMP PR[employer]ER esophageal dysmotility, mild dysphagia, malnutrition,is here today For follow-up after discharged from [facility] for alcohol withdrawal and alcohol withdrawal seizures and she was treated accordingly and she was given Keppra and patient left AMA . Plan is as follows Alcohol dependence. Complications of alcohol discussed. She started on naltrexone 50 mg 1 tablet daily along with Acomprosatte 333 mg and take 2 pills 3 times a day. Continue clonidine 0.1 mg daily at bedtime and she is also on gabapentin 800 mg 3 times a day. She talks to nurse practitioner and therapist online. Generalized anxiety disorder/depression. Continue on Zoloft and she sees psychiatry nurse practitioner. She was asking about clonazepam and currently she is not taking clonazepam. We declined high doses. We suggested that we should get records from her previous primary care physician. Systemic sclerosis with polyneuropathy. Continue on gabapentin 800 mg 1 tablet 3 times a day and she is given baclofen 20 mg 1 tablet 3 times a day which will help with muscle relaxation and pain. She is also given referral to see a health care liaison. Nicotine dependence. Smoking cessation discussed and she mentions she has not smoked for the past few days. We will do low-dose CT scan of the lungs because she has more than 79-iuug-ryju history of smoking. 10/08/2025 Nicotine dependence, unspecified, uncomplicated (ICD-10 - F17.200) Allyson is 55-year-old female with history of scleroderma,, with complication of peripheral neuropathy gait disturbance, insomnia, mostly wheelchair-bound cared by a STAMP PRESSER esophageal dysmotility, mild dysphagia, malnutrition, alcohol dependence and she was seen at [facility], alcohol withdrawal seizures, history of benzodiazepine dependence for a long time, multiple joint osteoarthritis,is here today For follow-up with her STAMP PRESSER Lore.. Plan is as follows Alcohol dependence.She is sober since her discharge from [facility]. Take naltrexone 50 mg 1 tablet daily along with Acomprosatte 333 mg and take 2 pills 3 times a day. Continue clonidine 0.2 mg daily 3 times a day and she is also on gabapentin 800 mg 3 times a day. She talks to nurse practitioner and therapist online. Generalized anxiety disorder/depression. Continue on Zoloft and she sees psychiatry nurse practitioner. She he is not on clonazepam anymore. She was on very high doses in the past.. Insomnia. Sleep hygiene discussed. Advised to increase mirtazapine to 30 mg 1 tablet daily and take pwvg-yhq-qccucsm melatonin 6 mg and take it at least an hour before going to bed and add magnesium glycinate 400 mg daily. Systemic sclerosis with polyneuropathy. Continue on gabapentin 800 mg 1 tablet 3 times a day and she is given baclofen 20 mg 1 tablet 4 times a day which will help with muscle relaxation and pain. She is also given referral to see a health care liaison. Gait instability. Secondary to deconditioning, neuropathy, degenerative disc disease/osteoarthrit is. She is given referral for home physical therapy and occupational therapy. Nicotine dependence. Smoking cessation discussed and she mentions she has not smoked for the past few days. We will do low-dose CT scan of the lungs because she has more than 60-mdkp-ehsm history of smoking. Medications reviewed and updated and questions answered. 07/01/2025 longterm (current) use of opiate analgesic (ICD-10 - Z79.891) 54-year-old lady with history of scleroderma associated with poorly neuropathy complicated with polyneuropathy, esophageal dysmotility, mild dysphagia, moderate to severe malnutrition is here today for a new PCP visit plan as following Systemic sclerosis with a polyneuropathy history of scleroderma diagnosed 15 years ago. Patient cannot remember the name of her health care liaison. We will get all the medical records. She is currently not on any treatment for that. She states that previously she was on hospice and then she revoked it. We will check a basic metabolic panel CBC, thyroid hormones, magnesium, vitamin B12 and vitamin D level as patient has also dysphagia and weight loss. Esophageal dyskinesia, dysphagia, associated with scleroderma, she reports that she has been barium studies in the past which showed esophageal dysmotility but there was no nicole aspiration she is supposed to be on a small bite size meals BMI of 15, moderate to severe malnutrition, weight loss zone more than 30-40 pounds in 1 year. Due to poor by mouth intake poor appetite, she also has underlying anxiety and depression which may be contributing further. We talked about Ensure and making home smoothies. 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 She is on Zoloft 75 Ese daily and also take clonazepam 2 mg 4 times a day 07/01/2025 Body mass index (BMI) 19 or less, adult (ICD-10 - Z68.1) 54-year-old lady with history of scleroderma associated with poorly neuropathy complicated with polyneuropathy, esophageal dysmotility, mild dysphagia, moderate to severe malnutrition is here today for a new PCP visit plan as following Systemic sclerosis with a polyneuropathy history of scleroderma diagnosed 15 years ago. Patient cannot remember the name of her health care liaison. We will get all the medical records. She is currently not on any treatment for that. She states that previously she was on hospice and then she revoked it. We will check a basic metabolic panel CBC, thyroid hormones, magnesium, vitamin B12 and vitamin D level as patient has also dysphagia and weight loss. Esophageal dyskinesia, dysphagia, associated with scleroderma, she reports that she has been barium studies in the past which showed esophageal dysmotility but there was no nicole aspiration she is supposed to be on a small bite size meals BMI of 15, moderate to severe malnutrition, weight loss zone more than 30-40 pounds in 1 year. Due to poor by mouth intake poor appetite, she also has underlying anxiety and depression which may be contributing further. We talked about Ensure and making home smoothies. 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 She is on Zoloft 75 Ese daily and also take clonazepam 2 mg 4 times a day 10/08/2025 Tobacco abuse counseling (ICD-10 - Z71.6) Allyson is 55-year-old female with history of scleroderma,, with complication of peripheral neuropathy gait disturbance, insomnia, mostly wheelchair-bound cared by a STAMP PRESSER esophageal dysmotility, mild dysphagia, malnutrition, alcohol dependence and she was seen at [facility], alcohol withdrawal seizures, history of benzodiazepine dependence for a long time, multiple joint osteoarthritis,is here today For follow-up with her STAMP PRESSER Loer.. Plan is as follows Alcohol dependence.She is sober since her discharge from [facility]. Take naltrexone 50 mg 1 tablet daily along with Acomprosatte 333 mg and take 2 pills 3 times a day. Continue clonidine 0.2 mg daily 3 times a day and she is also on gabapentin 800 mg 3 times a day. She talks to nurse practitioner and therapist online. Generalized anxiety disorder/depression. Continue on Zoloft and she sees psychiatry nurse practitioner. She he is not on clonazepam anymore. She was on very high doses in the past.. Insomnia. Sleep hygiene discussed. Advised to increase mirtazapine to 30 mg 1 tablet daily and take ikcf-qfk-vumiddk melatonin 6 mg and take it at least an hour before going to bed and add magnesium glycinate 400 mg daily. Systemic sclerosis with polyneuropathy. Continue on gabapentin 800 mg 1 tablet 3 times a day and she is given baclofen 20 mg 1 tablet 4 times a day which will help with muscle relaxation and pain. She is also given referral to see a health care liaison. Gait instability. Secondary to deconditioning, neuropathy, degenerative disc disease/osteoarthrit is. She is given referral for home physical therapy and occupational therapy. Nicotine dependence. Smoking cessation discussed and she mentions she has not smoked for the past few days. We will do low-dose CT scan of the lungs because she has more than 18-ihkb-tpnh history of smoking. Medications reviewed and updated and questions answered. 07/01/2025 Anorexia nervosa, restricting type, mild (ICD-10 - F50.010) 54-year-old lady with history of scleroderma associated with poorly neuropathy complicated with polyneuropathy, esophageal dysmotility, mild dysphagia, moderate to severe malnutrition is here today for a new PCP visit plan as following Systemic sclerosis with a polyneuropathy history of scleroderma diagnosed 15 years ago. Patient cannot remember the name of her health care liaison. We will get all the medical records. She is currently not on any treatment for that. She states that previously she was on hospice and then she revoked it. We will check a basic metabolic panel CBC, thyroid hormones, magnesium, vitamin B12 and vitamin D level as patient has also dysphagia and weight loss. Esophageal dyskinesia, dysphagia, associated with scleroderma, she reports that she has been barium studies in the past which showed esophageal dysmotility but there was no nicole aspiration she is supposed to be on a small bite size meals BMI of 15, moderate to severe malnutrition, weight loss zone more than 30-40 pounds in 1 year. Due to poor by mouth intake poor appetite, she also has underlying anxiety and depression which may be contributing further. We talked about Ensure and making home smoothies. 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 She is on Zoloft 75 [place] daily and also take clonazepam 2 mg 4 times a day 07/01/2025 Major depressive disorder, recurrent, moderate (ICD-10 - F33.1) 54-year-old lady with history of scleroderma associated with poorly neuropathy complicated with polyneuropathy, esophageal dysmotility, mild dysphagia, moderate to severe malnutrition is here today for a new PCP visit plan as following Systemic sclerosis with a polyneuropathy history of scleroderma diagnosed 15 years ago. Patient cannot remember the name of her health care liaison. We will get all the medical records. She is currently not on any treatment for that. She states that previously she was on hospice and then she revoked it. We will check a basic metabolic panel CBC, thyroid hormones, magnesium, vitamin B12 and vitamin D level as patient has also dysphagia and weight loss. Esophageal dyskinesia, dysphagia, associated with scleroderma, she reports that she has been barium studies in the past which showed esophageal dysmotility but there was no nicole aspiration she is supposed to be on a small bite size meals BMI of 15, moderate to severe malnutrition, weight loss zone more than 30-40 pounds in 1 year. Due to poor by mouth intake poor appetite, she also has underlying anxiety and depression which may be contributing further. We talked about Ensure and making home smoothies. 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 She is on Zoloft 75 Ese daily and also take clonazepam 2 mg 4 times a day Plan Of Treatment Pending Test Test Name Order Date Xray: Hip Gshw-Qfctwguo-Gcy 2 Vws 2024 Vitamin [id number] 07/01/2025 [id number] 07/01/2025 CBC with Diff, Platelet, [id number] 06/20 Vitamin D, [id number] 07/01/2025 TSH+Free [id number] 07/01/2025 Lipid Panel With LDL/HDL Ratio-[id number] Comp. Metabolic Panel [id number] 2024 Next Appt Details Provider Name:Marco Sharif, Chapin 01/02/2026 11:30:00 AM, [address] [place] [address], [id number], Insurance Providers Payer Name Payer Address Payer Phone Subscriber Number Group Number Insured Name Patient Relationship to Insured Coverage Start Date Coverage End Date [facility] [employer] [address] [place] [id number] Allyson Douglas Self - patient is the insured Medical (General) History Medical History History ICD Code scleroderma diagnosed more than 15 years ago Sclerosis with polyneuropathy Moderate to severe malnutrition Generalized anxiety disorder- [employer] Shdaia Kongo- DAVIN Depression Dysphagia Surgical History Surgery Date(Month/Year) Right shoulder fracture and surgery
== END 2025-11-17 15:40 | disposition home or self-care (01) ==
LOC: HO.HMCHD 14:38
PROVIDERS: PCP Physician Assistant Medical; Visit Provider Physician Assistant Medical
DX: M54.50 Low back pain, unspecified (principal); M25.551 Pain in right hip; M25.552 Pain in left hip; F33.9 Major depressive disorder, recurrent, unspecified; F41.9 Anxiety disorder, unspecified; R00.2 Palpitations; M79.7 Fibromyalgia; Z00.00 Encounter for general adult medical examination without abnormal findings; R60.9 Edema, unspecified

== ENCOUNTER → 2025-11-17 16:16 | Outpatient (BNV) | payer OTHER, SELFPAY | PROVIDERS: PCP Physician Assistant Medical; Visit Provider Radiology Diagnostic Radiology | DX: S73.002A Unspecified subluxation of left hip, initial encounter (principal); M16.0 Bilateral primary osteoarthritis of hip; S22.080A Wedge compression fracture of T11-T12 vertebra, initial encounter for closed fracture; S32.010A Wedge compression fracture of first lumbar vertebra, initial encounter for closed fracture; S32.050A Wedge compression fracture of fifth lumbar vertebra, initial encounter for closed fracture; M51.360 Other intervertebral disc degeneration, lumbar region with discogenic back pain only; M85.88 Other specified disorders of bone density and structure, other site | CPT/HCPCS: 72100; 73522 ==